=== PATIENT | female | born 1985 | race Caucasian/White ===

== ENCOUNTER 2020-07-20 11:56 | Outpatient (REF) | payer OTHER, SELFPAY ==
[2020-07-20 12:39] LABS: MANUAL DIFF FLAG NO
[2020-07-20 12:51] LABS: Basophils Percent Auto 0.4 % (0-2); Eosinophils Absolute Auto 0.1 X10*3/uL (0.0-0.4); Hematocrit 38.4 % (37-47); Hemoglobin 12.4 g/dl (12.0-16.0); Imm Gran Abs Auto 0.02 X10*3/uL (0.00-0.03); Imm Gran Pct Auto 0.3 % (0.0-0.4); Lymphocytes Absolute Auto 1.8 X10*3/uL (1.2-4.9); Lymphocytes Percent Auto 26.1 % (20-40); Mean Corpuscular HGB Conc 32.3 g/dl (31.0-35.0); Mean Corpuscular Hemoglobin 30.8 pg (27.0-33.0); Mean Corpuscular Volume 95.3 fL (80-98); Mean Platelet Volume 11.1 fL (9.4-12.3); Monocytes Absolute Auto 0.7 X10*3/uL (0.1-1.2); Monocytes Percent Auto 9.6 % (2-11); Neutrophils Absolute Auto 4.3 X10*3/uL (2.0-8.3); Neutrophils Percent Auto 62.6 % (45-73); Platelet Count 245 X10*3/uL (160-400); Red Blood Count 4.03 X10*6/uL (4.20-5.50); Red Cell Distribution Width 12.2 % (11.0-16.0); White Blood Count 6.9 X10*3/uL (4.8-10.8)
[2020-07-20 13:21] LABS: Anion Gap 14 (12-20); Blood Urea Nitrogen 11 mg/dL (9-16); Calcium 9.2 mg/dL (8.4-10.2); Carbon Dioxide 25 mmol/L (22-29); Chloride 105 mmol/L (96-108); Estimated Glomerular Filt Rate > 60; Glucose Fasting 77 mg/dL (60-99); Potassium 4.3 mmol/l (3.3-5.1); Sodium 140 mmol/L (135-145)
== END 2020-07-20 11:57 | disposition home or self-care (01) ==
LOC: HO.LAB 11:56
PROVIDERS: PCP Internal Medicine; Visit Provider Nurse Practitioner Family
DX: L40.8 Other psoriasis (principal)
CPT/HCPCS: 36415; 80048; 85025

== ENCOUNTER 2022-01-26 09:18 | Outpatient (REF) | payer OTHER, SELFPAY ==
[2022-01-26 09:54] LABS: MANUAL DIFF FLAG NO
[2022-01-26 10:19] LABS: Basophils Percent Auto 0.6 % (0-2); Eosinophils Absolute Auto 0.1 X10*3/uL (0.0-0.4); Eosinophils Percent Auto 2.3 % (0-4); Hematocrit 37.7 % (37.0-47.0); Hemoglobin 11.9 g/dl (12.0-16.0); Imm Gran Abs Auto 0.01 X10*3/uL (0.00-0.03); Imm Gran Pct Auto 0.2 % (0.0-0.4); Lymphocytes Absolute Auto 1.8 X10*3/uL (1.2-4.9); Lymphocytes Percent Auto 28.8 % (20-40); Mean Corpuscular HGB Conc 31.6 g/dl (31.0-35.0); Mean Corpuscular Hemoglobin 28.6 pg (27.0-33.0); Mean Corpuscular Volume 90.6 fL (80.0-98.0); Mean Platelet Volume 11.1 fL (9.4-12.3); Monocytes Absolute Auto 0.7 X10*3/uL (0.1-1.2); Monocytes Percent Auto 11.3 % (2-11); Neutrophils Absolute Auto 3.5 x10*3/uL (2.0-8.3); Neutrophils Percent Auto 56.8 % (45-73); Platelet Count 250 X10*3/uL (160-400); Red Blood Count 4.16 X10*6/uL (4.20-5.50); Red Cell Distribution Width 13.7 % (11.0-16.0); White Blood Count 6.2 X10*3/uL (4.8-10.8)
[2022-01-26 10:50] LABS: Estimated Average Glucose 103 mg/dL; Hemoglobin A1c % 5.2 %
[2022-01-26 10:57] LABS: Alanine Aminotransferase 14 U/L (0-31); Albumin Level 4.1 g/dL (3.5-5.0); Alkaline Phosphatase 54 U/L (39-117); Anion Gap 9 (12-20); Aspartate Amino Transferase 13 U/L (5-31); Bilirubin Direct 0.2 mg/dL (0.0-0.5); Bilirubin Total 0.4 mg/dL (0.0-1.0); Blood Urea Nitrogen 13 mg/dL (9-16); Calcium 8.9 mg/dL (8.4-10.2); Carbon Dioxide 24 mmol/L (22-29); Chloride 106 mmol/L (96-108); Cholesterol 175 mg/dL; Estimated Glomerular Filt Rate > 60; Glucose Random 78 mg/dL (60-115); HDL Cholesterol 49 mg/dL; LDL Cholesterol Calculated 112 mg/dl; Potassium 4.3 mmol/L (3.3-5.1); Sodium 135 mmol/L (135-145); Total Protein 6.8 g/dL (6.5-8.0); Triglycerides 74 mg/dL
[2022-01-26 11:05] LABS: Free T4 (Free Thyroxine) 0.84 ng/dL (0.71-1.85); Thyroid Stimulating Hormone 4.55 uIU/mL (0.32-4.0); Vitamin D 25-OH Total 27.1 ng/mL (>30)
[2022-01-26 11:30] LABS: Folate 11.6 ng/mL (> or = 4.0); Vitamin B12 548 pg/mL (200-900)
== END 2022-01-26 09:19 | disposition home or self-care (01) ==
LOC: HO.LAB 09:18
PROVIDERS: PCP Internal Medicine; Visit Provider Internal Medicine
DX: E66.9 Obesity, unspecified (principal); E78.00 Pure hypercholesterolemia, unspecified; R79.89 Other specified abnormal findings of blood chemistry; B35.1 Tinea unguium
CPT/HCPCS: 36415; 80053; 80061; 82248; 82306; 82607; 82746; 83036; 84439; 84443; 85025

== ENCOUNTER 2022-04-12 09:17 | Outpatient (REF) | payer OTHER, SELFPAY ==
[2022-04-12 16:46] LABS: CT PCR NOT DETECTED (Not Detect.); NG PCR NOT DETECTED (Not Detect.)
[2022-04-13 08:34] LABS: BV Int Neg Control Negative (Negative); BV Int Pos Control Positive (Positive)
[2022-04-16 00:27] LABS: HPV mRNA E6/E7 rflx Not Detected (Not Detected)
== END 2022-04-12 09:18 | disposition home or self-care (01) ==
LOC: HO.LAB 09:17
PROVIDERS: Visit Provider Advanced Practice Midwife
DX: Z01.419 Encounter for gynecological examination (general) (routine) without abnormal findings (principal); Z11.51 Encounter for screening for human papillomavirus (HPV); N89.8 Other specified noninflammatory disorders of vagina; Z20.2 Contact with and (suspected) exposure to infections with a predominantly sexual mode of transmission
CPT/HCPCS: 87480; 87491; 87510; 87591; 87624; 87660; 88142

== ENCOUNTER 2022-05-30 12:01 | Outpatient (REF) | payer OTHER, SELFPAY ==
[2022-05-31 12:16] LABS: BV Int Neg Control Negative (Negative); BV Int Pos Control Positive (Positive)
== END 2022-05-30 12:02 | disposition home or self-care (01) ==
LOC: HO.LNP 12:01
PROVIDERS: Visit Provider Advanced Practice Midwife
DX: Z11.3 Encounter for screening for infections with a predominantly sexual mode of transmission (principal); Z11.4 Encounter for screening for human immunodeficiency virus [HIV]; D64.9 Anemia, unspecified; R79.89 Other specified abnormal findings of blood chemistry
CPT/HCPCS: 36415; 82728; 83540; 84439; 84443; 85025; 85045; 86704; 86780; 86803; 87389; 87480; 87510; 87660; 99212

== ENCOUNTER 2022-05-30 12:06 | Outpatient (REF) | payer OTHER, SELFPAY ==
[2022-05-30 12:26] LABS: MANUAL DIFF FLAG NO
[2022-05-30 12:57] LABS: Basophils Percent Auto 0.3 % (0-2); Eosinophils Absolute Auto 0.1 X10*3/uL (0.0-0.4); Hematocrit 38.2 % (37.0-47.0); Hemoglobin 12.9 g/dl (12.0-16.0); Imm Gran Abs Auto 0.01 X10*3/uL (0.00-0.03); Imm Gran Pct Auto 0.2 % (0.0-0.4); Immature Retic Fraction 8.2 % (3.0-15.9); Lymphocytes Absolute Auto 1.5 X10*3/uL (1.2-4.9); Mean Corpuscular HGB Conc 33.8 g/dl (31.0-35.0); Mean Corpuscular Hemoglobin 30.3 pg (27.0-33.0); Mean Corpuscular Volume 89.7 fL (80.0-98.0); Mean Platelet Volume 11.3 fL (9.4-12.3); Monocytes Absolute Auto 0.5 X10*3/uL (0.1-1.2); Neutrophils Absolute Auto 4.2 x10*3/uL (2.0-8.3); Neutrophils Percent Auto 66.5 % (45-73); Platelet Count 260 X10*3/uL (160-400); Red Blood Count 4.26 X10*6/uL (4.20-5.50); Retic HGB Equivalent 35.1 pg (30.0-35.0); Reticulocyte Percent 1.2 % (0.5-1.8); Reticulocytes Absolute 0.051 X10*6/uL (0.026-0.095); White Blood Count 6.3 X10*3/uL (4.8-10.8)
[2022-05-30 13:30] LABS: Iron 71 mcg/dL (30-160); Percent Iron Saturation 20 % (15-50); Total Iron Binding Capacity 361 mcg/dL (228-428); Unsaturated Iron Binding 290 ug/dL
[2022-05-30 13:52] LABS: Ferritin 14 ng/mL (10-122); Free T4 (Free Thyroxine) 0.91 ng/dL (0.71-1.85); Thyroid Stimulating Hormone 5.51 uIU/mL (0.32-4.0)
[2022-05-30 14:43] LABS: Syphilis Screen Nonreactive (Nonreactive)
[2022-05-31 08:50] LABS: HBc Num1 0.12 S/CO (0.00-0.79); HIV AB/AG Nonreactive (Nonreactive); HIV Num 1 0.09 S/CO (0.00-0.99); Hepatitis B Core Antibody Nonreactive (Nonreactive); ~HepC Num1 0.16 S/CO (0.00-0.79); ~Hepatitis C Antibody Nonreactive (Nonreactive)
== END 2022-05-30 12:07 | disposition home or self-care (01) ==
LOC: HO.LAB 12:06
PROVIDERS: Absent Provider Internal Medicine; PCP Internal Medicine; Visit Provider Advanced Practice Midwife
DX: Z13.89 Encounter for screening for other disorder (principal)
CPT/HCPCS: 36415; 82728; 83540; 84439; 84443; 85025; 85045; 86704; 86780; 86803; 87389

== ENCOUNTER 2022-06-23 11:57 | Outpatient (REF) | payer OTHER, SELFPAY ==
--- NOTE | 2022-06-23 10:00 | EMG_ITS ---
Bilateral median and ulnar motor and sensory studies were performed. Bilateral radial and sensory studies were performed. Paraspinal muscles were tested with a needle. IMPRESSION: 1. [id number] right median neuropathy across carpal tunnel. 2. Mild left median neuropathy across carpal tunnel. MD ÓSCAR Farfan/HIRAM / [id number]
== END 2022-06-23 11:58 | disposition home or self-care (01) ==
LOC: HO.NEURO 11:57
PROVIDERS: PCP Internal Medicine; Visit Provider Internal Medicine
DX: R20.0 Anesthesia of skin (principal)
CPT/HCPCS: 95886; 95911

== ENCOUNTER 2022-08-31 21:19 | Emergency (ER) | payer OTHER, SELFPAY ==
[2022-08-31 21:31] VITALS: BP 131/80; PULSE 84; RESP 18; TEMP 36.7; O2SAT 99; BMI 31.3
[2022-08-31 22:04] LABS: Appearance Urine Clear; Color Urine Yellow; Glucose Urine UA Negative (Negative); Leukocyte Esterase Urine Negative (Negative); Nitrite Urine Negative (Negative); PH 5.5 (5.0-9.0); Specific Gravity - Urine 1.025 (1.005-1.025); UMIC TRIGGER UACC YES; Urine Blood Small (1+) (Negative); Urine Ketones Trace mg/dL (Negative); Urine Protein Trace mg/dL (Neg-Trace)
[2022-08-31 22:10] LABS: Urine Pregnancy NEGATIVE (NEGATIVE)
[2022-08-31 22:11] LABS: UPreg QC Valid YES
[2022-08-31 22:12] LABS: Bacteria Urine None Seen (None Seen); Hyaline Casts Urine 0-2 /LPF (0-2); WBC Urine 0-5 /HPF (0-5)
--- NOTE | 2022-08-31 22:47 | ED_ITS ---
HPI - General Adult General Chief complaint: General Medical Stated complaint: UTI? Time Seen by Provider: 08/31/22 22:21 Source: patient Mode of arrival: ambulatory Limitations: no limitations History of Present Illness HPI narrative: Patient otherwise healthy with no significant medical history everybody at home sick with upper respiratory symptoms patient had low-grade fever and chills and slight cough yesterday today she noticed painful urination slight amount of blood no vaginal discharge no frequency no nausea or vomiting no history of kidney stone Related Data Previous Rx's Medication Instructions Recorded cefuroxime axetil 250 mg tablet 250 mg PO BID 7 days #14 tabs 08/31/22 Allergies Allergy/AdvReac Type Severity Reaction Status Date / Time No Known Allergies Allergy Verified 07/05/22 11:23 [No Known Allergies*] Review of Systems Review of Systems: Yes all other systems are reviewed and are negative [facility] Past Medical History Medical History Bilateral finger numbness BMI 35.0-35.9,adult Surgical History Status post tonsillectomy Family History Family History Maternal Grandmother Breast cancer Maternal Aunt Breast cancer Mother Bipolar 1 disorder Social History Social History Housing: Apartment Alcohol intake: never Patient Tobacco Use Status: Former Tobacco user Tobacco use type: Cigarette Years Smoked: quit 2019 Smoked in Last 30 Days: No e-Cigarette/Vaping Use: Never Used Second Hand Smoke Exposure: No Use of substances other than those prescribed or required for medical reasons: No Advance Directives: No Advance Directives Information Provided: No Current occupational status: employed Cognitive needs: No Hearing needs: No Vision needs: Yes Physical Exam ED Vital Signs: Vital Signs - 24 hr 08/31/22 21:31 08/31/22 23:32 Temperature 98.1 F 97.5 F Pulse Rate 84 85 Respiratory Rate 18 16 Blood Pressure 131/80 106/81 Pulse Oximetry 99 98 Oxygen Delivery Method Room Air Room Air BMI result Body Mass Index 31.3 Appearance: Alert. Oriented X3. No acute distress. ENT: Pharynx normal. Oral Mucosa moist Neck: Normal inspection. Neck supple. CVS: Normal heart rate and rhythm. Pulses normal. Respiratory: No respiratory distress. Equal air entry bilateral, no wheezing/rales/rhonchi Abdomen: Soft and nontender. Bowel sounds are present, no mass palpable, no CVA tenderness Skin: Skin warm and dry. Normal skin color. Normal skin turgor. Extremities: No lower extremity edema. No calf tenderness Neuro: Oriented X 3. No motor deficit. Medications Administered Discontinued Medications Generic Name Dose Route Start Last Admin Trade Name Sofia PRN Reason Stop Dose Admin Cefuroxime Axetil 250 mg 08/31/22 22:44 08/31/22 23:36 Cefuroxime Axetil 250 Mg Tablet PO 08/31/22 22:45 250 mg ONCE ONE Administration Medical Decision Making Lab Data [facility] Lab Attestation statement: I reviewed the patient's lab results. Labs: Lab Results 08/31/22 08/31/22 Range/Units 21:56 21:56 Urine Color Yellow Urine Appearance Clear Urine pH 5.5 (5.0-9.0) Ur Specific D[place] 1.025 (1.005-1.025) Urine Protein Trace (Neg-Trace) mg/dL Urine Glucose (UA) Negative (Negative) mg/dL Urine Ketones Trace (Negative) mg/dL Urine Blood Small (1+) H (Negative) Urine Nitrite Negative (Negative) Ur Leukocyte Esterase Negative (Negative) Urine RBC 3-5 H (0-2) /HPF Urine WBC 0-5 (0-5) /HPF Ur Squamous Epith Cells 3-5 (0-2) /HPF Urine Bacteria None Seen (None Seen) Hyaline Casts 0-2 (0-2) /LPF Urine Test NEGATIVE (NEGATIVE) Discharge Plan Discharge Clinical Impression: Hemorrhagic cystitis Patient Disposition: Home, Self-Care Instructions: Urinary Tract Infection in Women (ED) Additional Instructions: Drink plenty of fluids Antibiotic as advised Report to the ER if worsening of the pain/fever/vomiting Prescriptions: New cefuroxime axetil 250 mg tablet 250 mg PO BID 7 Days Qty: 14 0RF Interventions: ED Discharge Assessment Last Done: 09/01/22 00:01 Discharge Date/Time: 09/01/22 00:02
[2022-08-31 23:32] VITALS: BP 106/81; PULSE 85; RESP 16; TEMP 36.4; O2SAT 98
== END 2022-09-01 00:02 | disposition home or self-care (01) ==
PROVIDERS: Emergency Provider Internal Medicine; PCP Internal Medicine
DX: N30.91 Cystitis, unspecified with hematuria (principal); Z87.891 Personal history of nicotine dependence
CPT/HCPCS: 81001; 81003; 81025; 99283; 99284

== ENCOUNTER 2022-10-04 22:05 | Emergency (ER) | payer OTHER, SELFPAY ==
[2022-10-04 22:46] VITALS: BP 103/71; PULSE 94; RESP 18; TEMP 36.6; O2SAT 96; BMI 31.3
[2022-10-04 23:15] LABS: Strep A Nucleic Acid Negative (Negative)
--- NOTE | 2022-10-05 02:05 | ED_ITS ---
HPI - URI/Sore Throat General Chief Complaint: Upper Respiratory Symptoms Stated Complaint: Sore throat Time Seen by Provider: 10/05/22 01:33 Source: patient Mode of arrival: ambulatory Limitations: no limitations History of Present Illness HPI Narrative: 37-year-old female who presents emergency department for evaluation of sore throat. Patient states she has had a sore throat for approximately 2-3 days. She states that the pain is gotten worse. She describes the pain is a constant, sharp pain which is worse with swallowing. She had a subjective fever at home, she denied chills, she had rhinorrhea, she denied cough, chest pain, shortness of breath, nausea, vomiting or diarrhea. The patient states she has had a tonsillectomy and prior to her tonsillectomy she did get frequent sore throats. She denied any your pain. Related Data Previous Rx's Medication Instructions Recorded cefuroxime axetil 250 mg tablet 250 mg PO BID 7 days #14 tabs 08/31/22 Allergies Allergy/AdvReac Type Severity Reaction Status Date / Time No Known Allergies Allergy Verified 07/05/22 11:23 [No Known Allergies*] Review of Systems Review of Systems: Yes all other systems are reviewed and are negative [facility] Past Medical History [facility] Narrative: Past medical history: None. Past surgical history: None. Social history: She denies tobacco and alcohol use. The patient's daughters here in the emergency department with a sore throat as well. Medical History Bilateral finger numbness BMI 35.0-35.9,adult Surgical History Status post tonsillectomy Family History Family History Maternal Grandmother Breast cancer Maternal Aunt Breast cancer Mother Bipolar 1 disorder Social History Social History Housing: Apartment Alcohol intake: never Patient Tobacco Use Status: Former Tobacco user Tobacco use type: Cigarette Years Smoked: quit 2019 e-Cigarette/Vaping Use: Never Used Second Hand Smoke Exposure: No Advance Directives: No Advance Directives Information Provided: Yes Current occupational status: employed Cognitive needs: No Hearing needs: No Vision needs: Yes Physical Exam Vital Signs: Vital Signs: Last Vital Signs Temp 98 F 10/04/22 22:46 Pulse 94 10/04/22 22:46 Resp 18 10/04/22 22:46 BP 103/71 10/04/22 22:46 Pulse Ox 96 10/04/22 22:46 O2 Del Method 10/04/22 22:46 BMI result Body Mass Index 31.3 Vital signs were normal General: Very pleasant and cooperative female patient, does not appear to be in distress, answers all questions appropriately. HEENT: Patient's head is normal cephalic, atraumatic, pupils were equal round reactive light, sclera contact however normal, no rhinorrhea, mouth revealed moist membranes, posterior pharynx revealed erythema with no exudates, tympanic membranes were normal bilaterally Neck: No tender adenopathy Lungs: Clear to auscultation, breath sounds symmetric bilaterally Heart: Regular rate rhythm, normal S1-S2 no murmurs or gallops Abdomen: Soft nontender normoactive bowel sounds Neuro: Nonfocal Medical Decision Making Medical Decision Making MDM Narrative: 37-year-old female who presents emergency department for evaluation 2-3 days of sore throat, rhinorrhea, subjective fevers, patient has a history of a tonsillectomy. Vital signs were normal. Exam did reveal posterior erythema otherwise was unremarkable , patient's rapid strep was negative. Findings are consistent with a viral pharyngitis I did discuss this with the patient. She was advised to take Tylenol ibuprofen. She was given printed and verbal instructions discharged home Differential Diagnosis Differential diagnosis includes was not limited to viral pharyngitis, bacterial pharyngitis, mononucleosis Lab Data [facility] Lab Attestation statement: I reviewed the patient's lab results. Labs: Lab Results 10/04/22 Range/Units 22:49 S. pyogenes GrpA PRAVEENA Negative (Negative) Discharge Plan Discharge Clinical Impression: Acute viral pharyngitis Patient Disposition: Home, Self-Care Instructions: Pharyngitis (ED) Additional Instructions: Your rapid strep test was negative. You do have redness the back of your throat and this is most likely caused by a viral infection. Take ibuprofen 200 mg pills, 2 pills every 6 hours as needed for pain. Take Tylenol (acetaminophen) 500 mg pills, 2 pills every 4 to 6 hours as needed for pain. Follow-up with your doctor in 2 days. Please return to the emergency department if your symptoms get worse or if you develop any symptoms that are concerning to you. Please see work note Prescriptions: No Action cefuroxime axetil 250 mg tablet 250 mg PO BID 7 Days Qty: 14 0RF Stand Alone Forms: Work/School Release
== END 2022-10-05 02:38 | disposition home or self-care (01) ==
PROVIDERS: Emergency Provider Emergency Medicine Emergency Medical Services; PCP Internal Medicine
DX: J02.8 Acute pharyngitis due to other specified organisms (principal); Z87.891 Personal history of nicotine dependence; Z79.899 Other long term (current) drug therapy
CPT/HCPCS: 36415; 87651; 99282; 99283

== ENCOUNTER 2022-10-05 10:04 | Outpatient (REF) | payer OTHER, SELFPAY ==
[2022-10-05 11:58] LABS: Free T4 (Free Thyroxine) 0.93 ng/dL (0.71-1.85); Thyroid Stimulating Hormone 6.21 uIU/mL (0.32-4.0)
== END 2022-10-05 10:05 | disposition home or self-care (01) ==
LOC: HO.LAB 10:04
PROVIDERS: PCP Internal Medicine; Visit Provider Internal Medicine
DX: R79.89 Other specified abnormal findings of blood chemistry (principal)
CPT/HCPCS: 36415; 84439; 84443

== ENCOUNTER 2023-07-14 10:34 | Emergency (ER) | payer OTHER, SELFPAY ==
--- NOTE | ~2023-07-14 | XR_ITS ---
EXAMINATION: XR WRIST, LEFT XR HAND, LEFT CLINICAL INFORMATION: Left thumb pain and swelling COMPARISON: None available. TECHNIQUE: PA, lateral, and oblique views of the left wrist and PA, lateral, and oblique views of the left hand FINDINGS: LEFT WRIST: The bones and soft tissues are normal. No fracture. Alignment is anatomic. Joint spaces are maintained. No erosions or soft tissue calcifications. LEFT HAND: The bones and soft tissues are normal. No fracture. Alignment is anatomic. Joint spaces are maintained. No erosions or soft tissue calcifications. XR/XR hand wrist LT IMPRESSION: Unremarkable left hand and wrist exam
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
[2023-07-14 11:22] VITALS: BP 114/78; PULSE 82; RESP 18; TEMP 36.6; O2SAT 98; BMI 32.9
== END 2023-07-14 13:56 | disposition home or self-care (01) ==
PROVIDERS: Emergency Provider Emergency Medicine Emergency Medical Services; PCP Internal Medicine
DX: S19.9XXA Unspecified injury of neck, initial encounter (principal); S69.92XA Unspecified injury of left wrist, hand and finger(s), initial encounter; M54.2 Cervicalgia; M25.512 Pain in left shoulder; M79.10 Myalgia, unspecified site; V43.52XA Car driver injured in collision with other type car in traffic accident, initial encounter; Y93.9 Activity, unspecified; Y92.410 Unspecified street and highway as the place of occurrence of the external cause; Y99.9 Unspecified external cause status; Z79.899 Other long term (current) drug therapy; Z87.891 Personal history of nicotine dependence
CPT/HCPCS: 73110; 73130; 99283

== ENCOUNTER 2023-07-22 22:16 | Emergency (ER) | payer OTHER, SELFPAY ==
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
[2023-07-22 23:11] VITALS: BP 119/77; PULSE 84; RESP 16; TEMP 36.6; O2SAT 97; BMI 33.7
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
[2023-07-23 00:36] LABS: OBS Int Ctl Valid YES; OBS1 NEGATIVE (NEGATIVE)
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
[2023-07-23 01:02] VITALS: BP 117/68; PULSE 73; RESP 16; TEMP 36.9; O2SAT 97
[2023-07-23] MEDS: traMADoL HCL 50 MG TABLET PO (01:27)
== END 2023-07-23 01:54 | disposition home or self-care (01) ==
PROVIDERS: Emergency Provider Internal Medicine; PCP Internal Medicine
DX: M54.50 Low back pain, unspecified (principal); M79.10 Myalgia, unspecified site; R10.9 Unspecified abdominal pain
CPT/HCPCS: 72100; 82272; 99284

== ENCOUNTER 2023-07-27 14:25 | Outpatient (AMB) | payer OTHER, SELFPAY ==
[2023-07-27 14:29] VITALS: BP 124/76; BMI 36.2
--- NOTE | 2023-07-27 14:29 | MHC.OFFVIS ---
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 Doing well with no concerns. She tries to eat healthy and stays active with exercise. Regular monthly menses. Currently is sexually active. She denies vaginal itching and irritation. STI screening offered; she accepts. Denies family history of breast, ovarian or colon cancer. Last pap smear 2021, ascus. [facility] Medical History BMI 35.0-35.9,adult Bilateral finger numbness Annual physical exam Surgical History Status post tonsillectomy Family History Maternal Grandmother Breast cancer Maternal Aunt Breast cancer Mother Bipolar 1 disorder Social History Housing: Apartment Alcohol intake: never Patient Tobacco Use Status: Former Tobacco user Tobacco use type: Cigarette Years Smoked: quit 2018 e-Cigarette/Vaping Use: Never Used Second Hand Smoke Exposure: No Current occupational status: employed Cognitive needs: No Hearing needs: No Vision needs: Yes Female Reproductive History Menstrual Age of Menarche: 13 Duration of menses: 6-7 days Date of last menstrual period: 07/10/23 control method: none Total pregnancies: 5 Full term: 5 Number of Living Children: 5 Date of last pap smear: 04/14/22 History of abnormal pap smear: Yes History of STI: No Review of Systems Const All systems reviewed & are unremarkable except as noted in HPI and below Reports as per HPI Eyes Reports no additional complaints ENT Reports no additional complaints Card Reports no additional complaints Resp Reports no additional complaints GI Reports as per HPI and Reports no additional complaints Reports as per HPI Musc Reports no additional complaints Skin/Breast Reports as per HPI Neuro Reports no additional complaints Psych Reports no additional complaints Endo Reports no additional complaints Pankaj/Lymph Reports no additional complaints Aller/Immun Reports no additional complaints Physical Exam Vital Signs: Last Vital Signs BP 124/76 07/27/23 14:29 BMI result Body Mass Index 36.2 Const General: cooperative, healthy appearing, no acute distress, well developed and alert Orientation/consciousness: patient oriented x3 HEENT Head: Yes normal to inspection Eyes General: appearance normal, both eyes and all related structures Neck Neck: Yes normal visual inspection Thyroid: Thyroid normal Chest Chest palpation & inspection: normal inspection of the chest and other (no puckering, dimpling, peau de orange, retraction, discharge, masses) Breast/axilla inspection: normal inspection of the breasts Breast/axilla palpation: normal palpation of the breasts Resp Effort & Inspection: normal respiratory effort GI Inspection: Yes normal to inspection Palpation (GI): Soft to palpation Rectal Exam - Female: deferred General: Yes bladder normal to palpation External Female Exam: normal external appearance and normal appearance of the urethra Speculum Exam - Vagina: normal appearance of the vagina, normal palpation and normal vaginal discharge Speculum Exam - Cervix: normal appearance of the cervix and normal palpation Bimanual exam- vagina & uterus: normal bimanual exam, normal palpation, uterine size normal, bladder normal to palpation, normal palpation and non-tender Bimanual Exam- Adnexa, other: no masses Skin General skin exam: no rashes or lesions noted Rashes: no rashes Neuro General: patient oriented x3 Cognition (Neuro): normal cognition Extrem General: Yes normal to inspection Psych Attitude: cooperative Thought process: Normal thought process present Assessment & Plan Assessment & Plan (1) Encounter for annual routine gynecological examination: Code(s): Z01.419 - Encounter for gynecological examination (general) (routine) without abnormal findings (2) History of abnormal cervical Pap smear: Code(s): Z87.42 - Personal history of other diseases of the female genital tract (3) Heavy menses: Code(s): N92.0 - Excessive and frequent menstruation with regular cycle Plan Discussed: Current recommendations for pap smears per ASCCP guidelines. Breast awareness and periodic breast exams. Maintain a healthy lifestyle including a well balanced diet and routine exercise. Use condoms for STI and prevention. All of her questions and concerns were addressed to the best of my ability. 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 Orders: Orders US pelvic and transvaginal Today N92.0 - Excessive and frequent menstruation with regular cycle Thyroid Stimulating Hormone Today N92.0 - Excessive and frequent menstruation with regular cycle, N92.1 - Excessive and frequent menstruation with irregular cycle CT NG by PCR Today Z01.419 - Encounter for gynecological examination (general) (routine) without abnormal findings Pap Smear Today Z01.419 - Encounter for gynecological examination (general) (routine) without abnormal findings Complete Blood Count no Diff Today N92.0 - Excessive and frequent menstruation with regular cycle HIV Ab/Ag Today Z20.2 - Contact with and (suspected) exposure to infections with a predominantly sexual mode of transmission Hepatitis C Antibody Today Z20.2 - Contact with and (suspected) exposure to infections with a predominantly sexual mode of transmission Hepatitis B Core Antibody Today Z20.2 - Contact with and (suspected) exposure to infections with a predominantly sexual mode of transmission Syphilis Screen Today Z20.2 - Contact with and (suspected) exposure to infections with a predominantly sexual mode of transmission Bacterial Vaginosis Panel Today [id number] - Encounter for gynecological examination (general) (routine) without abnormal findings Coding Level of Care Code Est Pt Prev Care 18-39y(85905) Diagnoses Encounter for annual routine gynecological examination Z01.419 History of abnormal cervical Pap smear Z87.42 Heavy menses N92.0
== END 2023-07-27 16:09 | disposition home or self-care (01) ==
PROVIDERS: PCP Internal Medicine; Visit Provider Advanced Practice Midwife
DX: Z01.419 Encounter for gynecological examination (general) (routine) without abnormal findings (principal); Z87.42 Personal history of other diseases of the female genital tract; N92.0 Excessive and frequent menstruation with regular cycle
CPT/HCPCS: 99395

== ENCOUNTER 2023-07-27 14:25 | Outpatient (REF) | payer OTHER, SELFPAY ==
[2023-08-04 03:48] LABS: HPV mRNA E6/E7 rflx Not Detected (Not Detected)
== END 2023-07-27 14:26 | disposition home or self-care (01) ==
LOC: HO.LNP 14:25
PROVIDERS: PCP Internal Medicine; Visit Provider Advanced Practice Midwife
DX: Z01.419 Encounter for gynecological examination (general) (routine) without abnormal findings (principal); Z11.51 Encounter for screening for human papillomavirus (HPV)
CPT/HCPCS: 87624; 88142; 99395

== ENCOUNTER 2023-07-27 15:20 | Outpatient (REF) | payer OTHER, SELFPAY ==
[2023-07-27 18:12] LABS: Hematocrit 37.6 % (37.0-47.0); Hemoglobin 12.7 g/dl (12.0-16.0); Mean Corpuscular HGB Conc 33.8 g/dl (31.0-35.0); Mean Corpuscular Hemoglobin 30.4 pg (27.0-33.0); Mean Platelet Volume 11.6 fL (9.4-12.3); Platelet Count 257 X10*3/uL (160-400); Red Blood Count 4.18 X10*6/uL (4.20-5.50); Red Cell Distribution Width 13.2 % (11.0-16.0)
[2023-07-28 03:50] LABS: CT PCR NOT DETECTED (Not Detect.); NG PCR NOT DETECTED (Not Detect.)
[2023-07-28 07:11] LABS: Syphilis Screen Nonreactive (Nonreactive)
[2023-07-28 07:23] LABS: HBc Num1 0.11 S/CO (0.00-0.79); HIV AB/AG Nonreactive (Nonreactive); HIV Num 1 0.05 S/CO (0.00-0.99); Hepatitis B Core Antibody Nonreactive (Nonreactive); ~HepC Num1 0.19 S/CO (0.00-0.79); ~Hepatitis C Antibody Nonreactive (Nonreactive)
[2023-07-28 13:45] LABS: BV Int Neg Control Negative (Negative); BV Int Pos Control Positive (Positive)
== END 2023-07-27 15:21 | disposition home or self-care (01) ==
LOC: HO.LAB 15:20
PROVIDERS: PCP Internal Medicine; Visit Provider Advanced Practice Midwife
DX: Z01.419 Encounter for gynecological examination (general) (routine) without abnormal findings (principal); Z11.4 Encounter for screening for human immunodeficiency virus [HIV]; Z20.2 Contact with and (suspected) exposure to infections with a predominantly sexual mode of transmission; N92.1 Excessive and frequent menstruation with irregular cycle; N92.0 Excessive and frequent menstruation with regular cycle
CPT/HCPCS: 0353U; 84443; 85027; 86704; 86780; 86803; 87389; 87480; 87510; 87660

== ENCOUNTER 2023-07-28 10:59 | Outpatient (AMB) | payer OTHER, SELFPAY ==
[2023-07-28 11:01] VITALS: BP 134/72; PULSE 62; O2SAT 100; BMI 36.2
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
== END 2023-07-28 11:43 | disposition home or self-care (01) ==
PROVIDERS: PCP Internal Medicine; Visit Provider Nurse Practitioner Family
DX: M54.9 Dorsalgia, unspecified (principal); M54.2 Cervicalgia
CPT/HCPCS: 99213

== ENCOUNTER 2023-08-04 12:01 | Outpatient (REF) | payer OTHER, SELFPAY ==
--- NOTE | ~2023-08-04 | US_ITS ---
EXAMINATION: US PELVIS CLINICAL INFORMATION: Excessive and frequent menstruation with regular cycles. LMP 07/08/2023 COMPARISON: None available. TECHNIQUE: Ultrasound of the pelvis is performed using both transabdominal and transvaginal transducers along with Doppler. Transvaginal imaging is performed due to inadequate visualization transabdominally. FINDINGS: Uterus: The uterus is anteverted and measures 10.6 x 4.7 x 5.6 cm. Uterine echotexture is heterogeneous. The double wall endometrial thickness is 21 mm. Echogenic focus within the endometrium measuring 2.6 x 1.1 x 2.0 cm with possible feeding vessel. Cervical nabothian cysts. Adnexa: Both ovaries are visualized. There is normal color flow to the adnexa. Right ovary measures 3.7 x 2.2 x 2.5 cm. Left ovary measures 3.8 x 2.4 x 2.3 cm. US/US pelvic and transvaginal IMPRESSION: Possible endometrial polyp measuring 2.6 x 1.1 x 2.0 cm.
== END 2023-08-04 12:02 | disposition home or self-care (01) ==
LOC: HO.US 12:01
PROVIDERS: PCP Internal Medicine; Visit Provider Advanced Practice Midwife
DX: N92.0 Excessive and frequent menstruation with regular cycle (principal)
CPT/HCPCS: 76830; 76856

== ENCOUNTER 2023-08-17 15:50 | Outpatient (AMB) | payer OTHER, SELFPAY ==
--- NOTE | 2023-08-17 15:54 | MHC.OFFVIS ---
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 She reports heavy menstrual periods lasting up to 7 days. Also wanted to discuss vaginal pH, bacterial vaginosis occurrences. [facility] Medical History BMI 35.0-35.9,adult Bilateral finger numbness Annual physical exam Surgical History Status post tonsillectomy Family History Maternal Grandmother Breast cancer Maternal Aunt Breast cancer Mother Bipolar 1 disorder Social History Housing: Apartment Alcohol intake: never Patient Tobacco Use Status: Former Tobacco user Tobacco use type: Cigarette Years Smoked: quit 2019 e-Cigarette/Vaping Use: Never Used Second Hand Smoke Exposure: No Current occupational status: employed Cognitive needs: No Hearing needs: No Vision needs: Yes Female Reproductive History Menstrual Age of Menarche: 13 Date of last menstrual period: 08/08/23 Review of Systems Const All systems reviewed & are unremarkable except as noted in HPI and below Endo Reports no additional complaints Physical Exam Vital Signs: Last Vital Signs BP 116/72 08/17/23 15:55 BMI result Body Mass Index 36.2 Const General: cooperative, healthy appearing and no acute distress Psych Appearance: well kempt Attitude: cooperative Thought process: Normal thought process present Results Reviewed Results Reviewed: [address] [address] Ultrasound Report Signed Patient: Honey Mazariegos MR#: [id number] : 1985 Acct:[id number] Age/Sex: 38 / F ADM Date: 08/04/23 Loc: HO.US Attending Dr: Maki Tijerina CNM Ordering Physician: Maki Tijerina CNM Date of Service: 08/04/23 Procedure(s): US pelvic and transvaginal Accession Number(s): [id number] cc: Maki Tijerina CNM; Jackson Saavedra MD~ EXAMINATION: US PELVIS CLINICAL INFORMATION: Excessive and frequent menstruation with regular cycles. LMP 07/08/2023 COMPARISON: None available. TECHNIQUE: Ultrasound of the pelvis is performed using both transabdominal and transvaginal transducers along with Doppler. Transvaginal imaging is performed due to inadequate visualization transabdominally. FINDINGS: Uterus: The uterus is anteverted and measures 10.6 x 4.7 x 5.6 cm. Uterine echotexture is heterogeneous. The double wall endometrial thickness is 21 mm. Echogenic focus within the endometrium measuring 2.6 x 1.1 x 2.0 cm with possible feeding vessel. Cervical nabothian cysts. Adnexa: Both ovaries are visualized. There is normal color flow to the adnexa. Right ovary measures 3.7 x 2.2 x 2.5 cm. Left ovary measures 3.8 x 2.4 x 2.3 cm. US/US pelvic and transvaginal IMPRESSION: Possible endometrial polyp measuring 2.6 x 1.1 x 2.0 cm. Dictated By: Lencho Carroll MD Signed By: <Electronically signed by Lencho Carroll MD in OV> 08/10/23 1619 DD/ 1241 TD/TT: Squeegee Operator: Assessment & Plan Assessment & Plan (1) Endometrial polyp: Code(s): N84.0 - Polyp of corpus uteri (2) Encounter to discuss test results: Code(s): Z71.2 - Person consulting for explanation of examination or test findings Plan Discussed findings of ultrasound with possible endometrial polyp, recommendations are to have a hysteroscopy. Anticipatory guidance for the procedure was reviewed with her today she agrees to proceed with that consult. Visual guide from the web site demonstrating what Endometrial polyps is was reviewed. Discussed normal vaginal pH, role of the eco system vaginally, when to treat for BV symptoms, and the use of boric acid. She does not report any symptoms today and declines any physical exam. All of her questions and concerns were addressed to the best of my ability and shared decision making. She is agreeable to the plan of care. Schedule hysteroscopy appointment with Dr. Palma. Coding Level of Care Code Est Pt Level 3 (00161) Diagnoses Endometrial polyp N84.0 Encounter to discuss test results Z71.2
[2023-08-17 15:55] VITALS: BP 116/72; BMI 36.2
== END 2023-08-17 16:19 | disposition home or self-care (01) ==
LOC: HO.HWS 15:50
PROVIDERS: PCP Internal Medicine; Visit Provider Advanced Practice Midwife
DX: N84.0 Polyp of corpus uteri (principal); Z71.2 Person consulting for explanation of examination or test findings
CPT/HCPCS: 99213

== ENCOUNTER → 2023-08-17 15:50 | Outpatient (BNVA) | payer OTHER, SELFPAY | PROVIDERS: PCP Internal Medicine; Visit Provider Advanced Practice Midwife | DX: N84.0 Polyp of corpus uteri (principal); Z71.2 Person consulting for explanation of examination or test findings | CPT/HCPCS: 99212 ==

== ENCOUNTER 2023-09-08 16:06 | Outpatient (REF) | payer OTHER, SELFPAY ==
[2023-09-08 18:40] LABS: Free T4 (Free Thyroxine) 0.93 ng/dL (0.71-1.85); Thyroid Stimulating Hormone 5.24 uIU/mL (0.32-4.0)
== END 2023-09-08 16:07 | disposition home or self-care (01) ==
LOC: HO.LAB 16:06
PROVIDERS: PCP Internal Medicine; Visit Provider Internal Medicine
DX: E03.9 Hypothyroidism, unspecified (principal)
CPT/HCPCS: 36415; 84439; 84443

== ENCOUNTER 2023-09-18 13:58 | Outpatient (AMB) | payer OTHER, SELFPAY ==
[2023-09-18 14:00] VITALS: BP 112/60; BMI 36.2
--- NOTE | 2023-09-18 14:00 | MHC.OFFVIS ---
Intake Vital Signs 09/18/23 14:00 Height 5 ft 7 in Weight 231 lb BMI 36.2 BP 112/60 Intake Visit Reasons: hysteroscopy consult/per BMaloney Environmental Remediation Specialist: Environmental Remediation Specialist Present Allergies No Known Allergies [No Known Allergies*] Allergy (Verified 09/18/23 14:00) Is last menstrual period known: Yes Last menstrual period: 06/11/20 Post menopausal: No Patient : No Do you need a note to return to daycare/school/sports/work: Yes (for surgery on monday) HPI HPI Comments History of Present Illness Details The patient is presenting referred from Maki Tijerina CNM regarding normal pelvic ultrasound. The patient had abnormal uterine bleeding, the following workup was done: H&H 12.7/37.6 TSH elevated, free T4 within normal GC/CT negative Co testing negative Pelvic ultrasound showed the following: Uterus: The uterus is anteverted and measures 10.6 x 4.7 x 5.6 cm. Uterine echotexture is heterogeneous. The double wall endometrial thickness is 21 mm. Echogenic focus within the endometrium measuring 2.6 x 1.1 x 2.0 cm with possible feeding vessel. Cervical nabothian cysts. Adnexa: Both ovaries are visualized. There is normal color flow to the adnexa. Right ovary measures 3.7 x 2.2 x 2.5 cm. Left ovary measures 3.8 x 2.4 x 2.3 cm. [facility] Medical History BMI 35.0-35.9,adult Bilateral finger numbness Annual physical exam Surgical History Status post tonsillectomy Family History Maternal Grandmother Breast cancer Maternal Aunt Breast cancer Mother Bipolar 1 disorder Social History Housing: Apartment Alcohol intake: never Patient Tobacco Use Status: Former Tobacco user Tobacco use type: Cigarette Years Smoked: quit 2018 e-Cigarette/Vaping Use: Never Used Second Hand Smoke Exposure: No Current occupational status: employed Cognitive needs: No Hearing needs: No Vision needs: Yes Female Reproductive History Menstrual Age of Menarche: 13 Date of last menstrual period: 06/11/20 Total pregnancies: 2 Full term: 2 Review of Systems Card Reports as per HPI and Reports no additional complaints Resp Reports as per HPI and Reports no additional complaints GI Reports as per HPI and Reports no additional complaints Reports as per HPI Physical Exam Vital Signs: Last Vital Signs BP 112/60 09/18/23 14:00 BMI result Body Mass Index 36.2 Const General: cooperative, healthy appearing and comfortable Resp Effort & Inspection: normal respiratory effort Auscultation: clear to auscultation bilaterally Percussion: percussion normal Cardio Palpation: normal PMI Rate: regular rate Rhythm: regular rhythm Heart sounds: no murmurs and no rubs Peripheral pulses: Peripheral pulses 2+ throughout GI Inspection: Yes normal to inspection Palpation (GI): Soft to palpation, nontender, no guarding, not rigid and No hepatosplenomegaly present Percussion: Yes normal to percussion Auscultation: normal bowel sounds Rectal Exam - Female: deferred Assessment & Plan Assessment & Plan (1) Abnormal uterine bleeding (AUB): Comment: Endometrial polyp on ultrasound Code(s): N93.9 - Abnormal uterine and vaginal bleeding, unspecified Plan: Discussed with the patient the results of ultrasound showing abnormal endometrium, possible differential diagnosis discussed the patient included but not limited to: possible endometrial polyp or myoma or other endometrial masses, recommended hysteroscopy D&C possible polypectomy/myomectomy. Discussed with the patient the procedure , all benefits and risks including but not limited to inability to complete the procedure , insufficient endometrial tissue for a complete evaluation of the endometrial cavity , bleeding, infection, possible need for blood transfusion with all its risk ( HIV,syphilis, Hepatitis, anaphylaxis shock, others..), injury to bladder, rectum, possible need for laparoscopy/laparotomy or hysterectomy. The patient verbalized understanding and signed the consent. Instructions given the patient to schedule a 2 week postoperative appointment (2) TSH elevation: Code(s): R79.89 - Other specified abnormal findings of blood chemistry Plan: Discussed the patient elevated TSH, the patient saw her PCP and Synthroid dose has been increased. Coding Level of Care Code Est Pt Level 3 (20465) Diagnoses Abnormal uterine bleeding (AUB) N93.9 TSH elevation R79.89
== END 2023-09-18 14:40 | disposition home or self-care (01) ==
PROVIDERS: PCP Internal Medicine; Visit Provider Obstetrics & Gynecology
DX: N93.9 Abnormal uterine and vaginal bleeding, unspecified (principal); R79.89 Other specified abnormal findings of blood chemistry
CPT/HCPCS: 99213

== ENCOUNTER → 2023-09-18 13:58 | Outpatient (BNVA) | payer OTHER, SELFPAY | PROVIDERS: PCP Internal Medicine; Visit Provider Obstetrics & Gynecology | DX: N93.9 Abnormal uterine and vaginal bleeding, unspecified (principal); R94.6 Abnormal results of thyroid function studies; Z98.890 Other specified postprocedural states | CPT/HCPCS: 99212 ==

== ENCOUNTER 2023-09-21 10:10 | Day surgery (SDC) | payer OTHER, SELFPAY ==
--- NOTE | 2023-09-20 12:39 | HO.ANESPROP2 ---
Documented by User: Ashleigh Giraldo NP 09/20/23 12:40 HPI - Anesthesia Eval Consult details Narrative: 38yo F for D&C Hysteroscopy,possible myomectomy,possible polypectomy, PMFSH Active Problems Active Problems: All Active Problems (Updated 09/18/23 @ 14:26 by Abdifatah Palma MD) Abnormal uterine bleeding (AUB) (Acute) Back pain (Acute) Neck pain (Acute) Annual physical exam (Acute) Pharyngitis (Acute) Constipation (Acute) Blood per rectum (Acute) Hypothyroidism (Acute) Eye refraction disorder (Acute) Carpal tunnel syndrome on both sides (Acute) Encounter for annual routine gynecological examination (Acute) Tiredness (Acute) Mild anemia (Acute) TSH elevation (Acute) Vaginal discharge (Acute) Onychomycosis (Acute) Cervical cancer screening (Acute) Eczema (Acute) Seborrheic dermatitis (Acute) Obesity (BMI 30-39.9) (Acute) Past Medical History Medical History BMI 35.0-35.9,adult Bilateral finger numbness Annual physical exam Family History Family History Maternal Grandmother Breast cancer Maternal Aunt Breast cancer Mother Bipolar 1 disorder Surgical History Surgical History Status post tonsillectomy Social History Social History Housing: Apartment Alcohol intake: never Patient Tobacco Use Status: Former Tobacco user Tobacco use type: Cigarette Years Smoked: quit 2018 e-Cigarette/Vaping Use: Never Used Second Hand Smoke Exposure: No Current occupational status: employed Cognitive needs: No Hearing needs: No Vision needs: Yes Meds Allergies Allergy/AdvReac Type Severity Reaction Status Date / Time No Known Allergies Allergy Verified 09/18/23 14:00 [No Known Allergies*] Assessment and Plan Assessment Anesthesia Assessment: Chart Reviewed Documented by User: Dimitri Osman MD 09/21/23 12:37 PMFSH Past Medical History Medical History BMI 35.0-35.9,adult Bilateral finger numbness Annual physical exam Patient : No Family History Family History Maternal Grandmother Breast cancer Maternal Aunt Breast cancer Mother Bipolar 1 disorder Family history of problems with anesthesia: No Surgical History Surgical History Status post tonsillectomy History of Problems with Anesthesia: No Social History Social History Housing: Apartment Alcohol intake: never Patient Tobacco Use Status: Former Tobacco user Tobacco use type: Cigarette Years Smoked: quit 2019 e-Cigarette/Vaping Use: Never Used Second Hand Smoke Exposure: No Current occupational status: employed Cognitive needs: No Hearing needs: No Vision needs: Yes Meds Allergies Allergy/AdvReac Type Severity Reaction Status Date / Time No Known Allergies Allergy Verified 09/18/23 14:00 [No Known Allergies*] Exam Airway Mallampati Class: I TM Dist: <=3cm Neck ROM: Full Loose/Missing/Broken Teeth: Yes Heart: ok Lungs: ok Assessment and Plan Assessment Anesthesia Assessment: Anesthesia Plan Discussed Final Anesthetic Review Family History of Problems with Anesthesia: No History of Problems with Anesthesia: No NPO: Yes ASA Class: II Final Preanesthetic Review: No Changes in Pt Med Stat, Meds/Allgs Chart Reviewed, Consent Obtained/Reviewed and Anes Risks/Benef Reviewed Patient Risk: Intermediate Procedure Risk: Low Anesthetic Plan Anesthetic Plan: GA and Agree w/ Assess. and Plan Disposition: Standard PACU
[2023-09-21 10:19] VITALS: BMI 41.2
[2023-09-21 10:28] VITALS: BP 136/73; PULSE 89; RESP 20; TEMP 36.1; O2SAT 97
[2023-09-21 10:34] LABS: UPreg QC Valid YES; Urine Pregnancy NEGATIVE (NEGATIVE)
[2023-09-21] MEDS: Lactated Ringers 1,000 ML 100 ML IVCONT (10:44)
--- NOTE | 2023-09-21 11:51 | MHC.SHP ---
Pre-Procedural Eval Section A - 24 Hr Update-Section A only Date of Service: 09/21/23 The patient is an INPATIENT: No Changes since office visit: No Cold of Flu in the past 2 weeks, No New Medical Problems, No Changes in Medication and No Patient answered all questions The patient has been examined within 24 hours of the surgical procedure. The History & Physical has been completed within 30 days and I have reviewed it.: Yes Section B - Complete if H&P > 30 days Chief Complaint: Abnormal uterine and vaginal bleeding, unspecified Allergies: Allergies Allergy/AdvReac Type Severity Reaction Status Date / Time No Known Allergies Allergy Verified 09/18/23 14:00 [No Known Allergies*] Plan Diagnosis/Plan: Unchanged I have reviewed the history and physical and performed a pertinent physical examination on my patient. No changes have occurred unless specified. Time Spent With Patient Time: Total time managing care of this patient today ____ minutes.
--- NOTE | 2023-09-21 12:44 | PM.OP ---
Brief Operative Note Date of Service: 09/21/23 Pre-op diagnosis: Abnormal uterine bleeding, endometrial polyp by ultrasound Post-op diagnosis: same (2.5 cm endometrial polyp) Procedure: Hysteroscopy D&C, Polypectomy Surgeon: Abdifatah Palma MD Anesthesia: GLMA Was an Sap Bw Architect used for this Procedure?: No Estimated blood loss (mL): 0 Pathology: other (Endometrial Scrapping. Polyp) Condition: stable Disposition: PACU
--- NOTE | 2023-09-21 12:45 | W.PM.OPN ---
Operative Note Operative Note Date of Service: 09/21/23 Narrative: Preop Diagnosis: Abnormal uterine bleeding, Endometrial polyp by US Operation: Diagnostic Hysteroscopy, Dilataion & Curettage and polypectomy Post Op Diagnosis: 2.5 cm Endometrial Polyp QBL: Minimal Anesthesia: GLMA Surgeon: Abdifatah Palma MD Editor Managing Director: None Complication: None Pathology: Endometrial Scrapings, Endometrial polyp Procedure: The patient was put in the dorsal lithotomy position, scrubbed, and draped in the usual manner. A sterile speculum was inserted in the patient's vagina. The anterior lip of the cervix was grasped with a single tooth tenaculum. The cervix was dilated up to 5 mm, then the scope was inserted in the patient's uterus. Inspection revealed 2.5 cm endometrial polyp. The Myosure Reach device was used; it was introduced through the operative channel and polypectomy done with no complications. The scope was then taken out from the uterine cavity, sharp curettings was carried on with minimal to moderate amount of tissues retrieved. At the end of the procedure, all instruments were taken out of the patient uterine and vaginal cavity. The single tooth tenaculum was removed and homeostasis was assured using pressure,. The patient tolerated the procedure well and was transferred to the PACU in a stable condition.
[2023-09-21 12:54] VITALS: BP 145/78; PULSE 86; RESP 18; TEMP 36.3; O2SAT 96
[2023-09-21 12:59] VITALS: BP 122/85; PULSE 66; RESP 18; O2SAT 96
[2023-09-21 13:04] VITALS: BP 135/89; PULSE 70; RESP 20; O2SAT 97
[2023-09-21 13:09] VITALS: BP 129/87; PULSE 74; RESP 20; O2SAT 96
[2023-09-21 13:24] VITALS: BP 124/79; PULSE 60; RESP 20; TEMP 36.6; O2SAT 98
== END 2023-09-21 13:55 | disposition home or self-care (01) ==
PROVIDERS: PCP Internal Medicine; Visit Provider Obstetrics & Gynecology
PROC: 0UDB8ZZ Extraction of Endometrium, Via Natural or Artificial Opening Endoscopic (ICD-10-PCS; CPT 58558; principal; 2023-09-21 12:00)
DX: N93.9 Abnormal uterine and vaginal bleeding, unspecified (principal); D64.9 Anemia, unspecified
CPT/HCPCS: 58558; 81025; 88305; J1885; J2405; J2704; J3010

== ENCOUNTER → 2023-09-21 10:10 | Outpatient (BNV) | payer OTHER, SELFPAY | PROVIDERS: PCP Internal Medicine; Visit Provider Obstetrics & Gynecology | DX: N84.0 Polyp of corpus uteri (principal); N93.9 Abnormal uterine and vaginal bleeding, unspecified | CPT/HCPCS: 58558 ==

== ENCOUNTER 2023-10-09 14:08 | Outpatient (AMB) | payer OTHER, SELFPAY ==
[2023-10-09 14:12] VITALS: BP 118/77; BMI 35.2
--- NOTE | 2023-10-09 14:12 | A.OFFVIS_ITS ---
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 The pathology showed the following: A. Endometrium, curettage: Secretory endometrium; no atypia or hyperplasia identified. B. Endometrium, polypectomy: Fragments of endometrial polyp; no atypia identified The following workup for AUB has been done so far: H&H 12.7/37.6 TSH elevated, free T4 within normal, Synthroid dose has been adjusted by the patient's PCP GC/CT negative Co testing negative Pelvic ultrasound showed the following: Uterus: The uterus is anteverted and measures 10.6 x 4.7 x 5.6 cm. Uterine echotexture is heterogeneous. The double wall endometrial thickness is 21 mm. Echogenic focus within the endometrium measuring 2.6 x 1.1 x 2.0 cm with possible feeding vessel. Cervical nabothian cysts. Adnexa: Both ovaries are visualized. There is normal color flow to the adnexa. Right ovary measures 3.7 x 2.2 x 2.5 cm. Left ovary measures 3.8 x 2.4 x 2.3 cm. [facility] Medical History BMI 35.0-35.9,adult Bilateral finger numbness Annual physical exam Surgical History Status post tonsillectomy Family History Maternal Grandmother Breast cancer Maternal Aunt Breast cancer Mother Bipolar 1 disorder Social History Housing: Apartment Alcohol intake: never Patient Tobacco Use Status: Former Tobacco user Tobacco use type: Cigarette Years Smoked: quit 2019 e-Cigarette/Vaping Use: Never Used Second Hand Smoke Exposure: No Patient : No Current occupational status: employed Cognitive needs: No Hearing needs: No Vision needs: Yes Female Reproductive History Menstrual Age of Menarche: 13 Date of last menstrual period: 10/03/23 Review of Systems Const All systems reviewed & are unremarkable except as noted in HPI and below Reports as per HPI and Reports no additional complaints GI Reports no additional complaints Reports no additional complaints Physical Exam Vital Signs: Last Vital Signs BP 118/77 10/09/23 14:12 BMI result Body Mass Index 35.2 Assessment & Plan Assessment & Plan (1) Abnormal uterine bleeding (AUB): Comment: Endometrial polyp on ultrasound status post hysteroscopic polypectomy Code(s): N93.9 - Abnormal uterine and vaginal bleeding, unspecified Plan: Discussed with the patient the results of the work up done and options of treatment including Lysteda, BCP's, Mirena IUD, endometrial ablation and hysterectomy. All pros, cons, risks and benefits if each option was discussed with the patient and the patient decided to think about it and get back to us. All questions answered the patient verbalized understanding. Coding Level of Care Code Est Pt Level 3 (15754) Diagnoses Abnormal uterine bleeding (AUB) N93.9
== END 2023-10-09 16:07 | disposition home or self-care (01) ==
LOC: HO.HWS 14:08
PROVIDERS: PCP Internal Medicine; Visit Provider Obstetrics & Gynecology
DX: N93.9 Abnormal uterine and vaginal bleeding, unspecified (principal)
CPT/HCPCS: 99213

== ENCOUNTER → 2023-10-09 14:08 | Outpatient (BNVA) | payer OTHER, SELFPAY | PROVIDERS: PCP Internal Medicine; Visit Provider Obstetrics & Gynecology | DX: N93.9 Abnormal uterine and vaginal bleeding, unspecified (principal) | CPT/HCPCS: 99212 ==

== ENCOUNTER 2023-10-18 15:51 | Outpatient (REF) | payer OTHER, SELFPAY ==
[2023-10-18 18:19] LABS: Free T4 (Free Thyroxine) 0.91 ng/dL (0.71-1.85); Thyroid Stimulating Hormone 4.18 uIU/mL (0.32-4.0)
[2023-10-19 10:33] LABS: Thyroid Peroxidase Antibodies >900 IU/mL (<9)
== END 2023-10-18 15:52 | disposition home or self-care (01) ==
LOC: HO.LAB 15:51
PROVIDERS: PCP Internal Medicine; Visit Provider Internal Medicine
DX: E03.9 Hypothyroidism, unspecified (principal)
CPT/HCPCS: 36415; 84439; 84443; 86376

== ENCOUNTER 2023-11-08 15:00 | Outpatient (RCR) | payer OTHER, SELFPAY ==
--- NOTE | 2023-08-31 15:52 | MHC.PT.EP ---
[facility] [place] Office [place] Office [place] Office [address] Ramona Parks [address] [phone] F: [phone] F: [phone] F: [phone] F: [phone] Physical Therapy Plan of Care Date of Evaluation: 08/31/23 Date of Surgery: N/A Diagnosis: neck pain (RL) Assessment: pt is a 38 y/o female presenting to physical therapy w/ referring diagnosis of neck pain. Impairments include pain, decreased range of motion, decreased strength, impaired functional mobility, impaired postural awareness, and altered ambulation mechanics. pt is a good candidate for skilled PT due to age, potential remediation of impairments, typical disease/condition progression and prognosis, comorbidities, and motivation. pt would benefit from skilled PT intervention to provide a tailored strengthening and stretching exercise program, functional training, gait training, postural re-training, neuromuscular re-education, modalities as needed for pain, equipment safety demonstration. Frequency and Duration: The patient will be seen 2x/wk for 4 wks Short Term Goals: pt will be I w/ HEP to promote self-management of condition. pt will demo proper sitting posture lumbar roll to promote neutral spine w/ seated ADLs. Skilled Nursing Goals: pt will report a statistically significant improvement in self-reported outcome measure, NDI, to return to PLOF. pt will demo proper lifting mechanics x5 reps of 20-30# to promote return to lifting at work. Treatment Plan: Modalities to reduce pain, spasms and effusion. Manual therapy to restore motion and function. Therapeutic exercise to improve strength and flexibility. Neuromuscular re-education for posture and balance. Therapeutic activities to return to functional activities of daily living. Electronically signed by: Lisette Prado PT, DPT Please sign and return to therapist. Thank you for your referral.
--- NOTE | 2023-11-15 11:40 | MHC.PT.DC ---
[facility] [place] Office [place] Office [place] Office [address] Ramona Parks [address] [facility] [phone] F: [phone] F: [phone] F: [phone] F: [phone] Physical Therapy Discharge Report Diagnosis: neck pain (RL) Date of Surgery: N/A Date of Evaluation: 08/31/23 Date of Discharge: 11/15/23 Treatments to Date: 11 Cancellations to Date: 4 No Shows to Date: 0 Discharge Status: Improved Function Independent with HEP Discharge Summary: The patient was experiencing a small exacerbation of left sided pain today but otherwise has been doing well. She feels she is 80% back to baseline. At this time, she has plateaued and I encouraged her to continue with her home exercise program to continue strengthening on her own. She is independent with her home exercise program. The patient is discharged from this physical therapy plan of care. Electronically signed by: Lisette Prado PT, DPT Please sign and return to therapist. Thank you for your referral.
== END 2023-11-15 11:41 | disposition home or self-care (01) ==
LOC: HO.PT 15:00
PROVIDERS: PCP Internal Medicine; Visit Provider Nurse Practitioner Family
DX: M54.2 Cervicalgia (principal)
CPT/HCPCS: 97014; 97110; 97161; 97530

== ENCOUNTER 2023-12-28 12:22 | Outpatient (AMB) | payer OTHER, SELFPAY ==
[2023-12-28 12:25] VITALS: BP 110/64; PULSE 78; O2SAT 99; BMI 36.6
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
== END 2023-12-28 12:58 | disposition home or self-care (01) ==
PROVIDERS: Visit Provider Internal Medicine
DX: Z00.00 Encounter for general adult medical examination without abnormal findings (principal); N93.9 Abnormal uterine and vaginal bleeding, unspecified; Z68.36 Body mass index [BMI] 36.0-36.9, adult; E66.9 Obesity, unspecified; E03.9 Hypothyroidism, unspecified; M72.2 Plantar fascial fibromatosis; R21 Rash and other nonspecific skin eruption
CPT/HCPCS: 99395

== ENCOUNTER 2023-12-29 13:06 | Outpatient (REF) | payer OTHER, SELFPAY ==
[2023-12-29 13:21] LABS: MANUAL DIFF FLAG NO
[2023-12-29 13:46] LABS: Basophils Percent Auto 0.6 % (0-2); Eosinophils Absolute Auto 0.1 X10*3/uL (0.0-0.4); Eosinophils Percent Auto 1.1 % (0-4); Hematocrit 38.8 % (37.0-47.0); Hemoglobin 12.7 g/dl (12.0-16.0); Imm Gran Abs Auto 0.02 X10*3/uL (0.00-0.03); Imm Gran Pct Auto 0.3 % (0.0-0.4); Lymphocytes Absolute Auto 1.9 X10*3/uL (1.2-4.9); Lymphocytes Percent Auto 26.3 % (20-40); Mean Corpuscular HGB Conc 32.7 g/dl (31.0-35.0); Mean Corpuscular Hemoglobin 29.1 pg (27.0-33.0); Mean Platelet Volume 10.9 fL (9.4-12.3); Monocytes Absolute Auto 0.7 X10*3/uL (0.1-1.2); Monocytes Percent Auto 9.3 % (2-11); Neutrophils Absolute Auto 4.4 x10*3/uL (2.0-8.3); Neutrophils Percent Auto 62.4 % (45-73); Platelet Count 265 X10*3/uL (160-400); Red Blood Count 4.36 X10*6/uL (4.20-5.50); Red Cell Distribution Width 13.3 % (11.0-16.0); White Blood Count 7.1 X10*3/uL (4.8-10.8)
[2023-12-29 14:28] LABS: Alanine Aminotransferase 17 U/L (0-31); Albumin Level 4.4 g/dL (3.5-5.0); Alkaline Phosphatase 49 U/L (39-117); Anion Gap 13 (12-20); Aspartate Amino Transferase 20 U/L (5-31); Bilirubin Total 0.6 mg/dL (0.0-1.0); Blood Urea Nitrogen 16 mg/dL (9-16); Calcium 9.4 mg/dL (8.4-10.2); Carbon Dioxide 23 mmol/L (22-29); Chloride 108 mmol/L (96-108); Cholesterol 160 mg/dL (<200); Estimated Glomerular Filt Rate > 60; Glucose Random 74 mg/dL (60-115); HDL Cholesterol 49 mg/dL (>40); LDL Cholesterol Calculated 92 mg/dL (<100); Potassium 3.8 mmol/L (3.3-5.1); Sodium 140 mmol/L (135-145); Total Protein 7.4 g/dL (6.5-8.0); Triglycerides 95 mg/dL (<150)
[2023-12-29 14:45] LABS: Free T4 (Free Thyroxine) 0.91 ng/dL (0.71-1.85); Thyroid Stimulating Hormone 4.41 uIU/mL (0.32-4.0); Vitamin D 25-OH Total 24.5 ng/mL (>30)
[2023-12-29 15:15] LABS: Folate 11.1 ng/mL (> or = 4.0); Vitamin B12 708 pg/mL (200-900)
== END 2023-12-29 13:07 | disposition home or self-care (01) ==
LOC: HO.LAB 13:06
PROVIDERS: PCP Internal Medicine; Visit Provider Internal Medicine
DX: E03.9 Hypothyroidism, unspecified (principal); E78.00 Pure hypercholesterolemia, unspecified
CPT/HCPCS: 36415; 80053; 80061; 82306; 82607; 82746; 84439; 84443; 85025

== ENCOUNTER 2024-08-23 15:48 | Outpatient (AMB) | payer OTHER, SELFPAY ==
[2024-08-23 15:59] VITALS: BP 132/80; PULSE 83; O2SAT 99; BMI 37.8
--- NOTE | 2024-08-23 15:59 | MHC.PC.OV ---
Vital Signs 08/23/24 15:59 Height 5 ft 7 in Weight 241 lb 4 oz BMI 37.8 BP 132/80 Blood Pressure Location Lt brachial Position Sitting Pulse 83 Pulse Source Pulse Oximeter Pulse Oximetry (%) 99 Oxygen Delivery Method Room Air Intake Visit Reasons: 6 month follow up [employer] Required: No Accompanied by: Self / Same As Patient Allergies No Known Allergies [No Known Allergies*] Allergy (Verified 08/23/24 16:00) Tobacco use date assessed: 08/23/24 Dental Screening Dental Screen Date: 08/23/24 Did you have a dental visit in the last 12 months?: Yes Did you have a dental problem in the last 6 months where you did not have access to dental care?: No Was dental information given to patient?: Patient has dentist HPI 6 month follow up HPI Details The patient is a 39-year-old female presenting with concerns regarding weight management and hypothyroidism. She has not been adhering to her prescribed thyroid medication of 75 mcg. The patient acknowledges being aware of her overweight status and associates part of it with her thyroid condition. She reports a history of being at a healthier weight when more physically active but has struggled to maintain activity levels and manage weight gain after acquiring a car. The patient describes previous weight of 160 lbs and good health status several years ago without significant comparisons from healthcare providers as there were no frequent visits. The patient has decided to increase physical activity, specifically starting with speed walking. Her dietary habits include a focus on fruits, vegetables, garces and fish, with an aim to reduce intake of carbohydrates such as bread and pasta. She has expressed discomfort with reliance on medications and a desire to achieve weight loss through lifestyle modifications. The patient also reports intermittent pain under the right shoulder blade, which has not been linked to any specific condition or recurring symptoms. She has raised concerns about possible underlying conditions due to fatigue but does not link them exclusively to the thyroid condition, attributing them also to lifestyle factors such as work and parenting stress. Furthermore, there is a familial history of diabetes, motivating her to avoid long-term medication use for lifestyle-modifiable conditions. The patient has expressed concern about bruising, though no current bruising is reported. She is cautious about respiratory infections given the season and her children but does not typically receive vaccinations for flu or related illnesses. [facility] Medical History (Updated 12/28/23 @ 12:40 by Jackson Saavedra MD) Neck pain Back pain Pharyngitis Blood per rectum Eye refraction disorder Encounter for annual routine gynecological examination Mild anemia Tiredness Vaginal discharge Cervical cancer screening Eczema Seborrheic dermatitis BMI 35.0-35.9,adult Bilateral finger numbness Annual physical exam Surgical History Status post tonsillectomy Family History Maternal Grandmother Breast cancer Maternal Aunt Breast cancer Mother Bipolar 1 disorder Mental health disorder Social History Housing: Apartment Alcohol intake: never Patient Tobacco Use Status: Former Tobacco user Tobacco use type: Cigarette Years Smoked: quit 2019 e-Cigarette/Vaping Use: Never Used Second Hand Smoke Exposure: No Current occupational status: employed Cognitive needs: No Hearing needs: No Vision needs: Yes Female Reproductive History Menstrual Age of Menarche: 13 Questionnaire PHQ-9 Over the last 2 weeks, how often have you been bothered by any of the following problems? 1. Little interest or pleasure in doing things: not at all 2. Feeling down, depressed, or hopeless: not at all 3. Trouble falling or staying asleep, or sleeping too much: not at all 4. Feeling tired or having little energy: not at all 5. Poor appetite or overeating: not at all 6. Feeling bad about yourself - or that you are a failure or have let yourself or your family down: not at all 7. Trouble concentrating on things, such as reading the newspaper or watching television: not at all 8. Moving or speaking so slowly that other people could have noticed. Or the opposite - being so fidgety or restless that you have been moving around a lot more than usual: not at all 9. Thoughts that you would be better off or of hurting yourself in some way: not at all Total score: 0 Depression Screening Interpretation: Negative Depression Screening Done: Yes Source: Developed by Drs. Philip Remy, Rosaura Waterman, Randolph Vicente and colleagues, with an educational alberto from [employer]. Thrive Questionnaire Date Thrive assessed: 08/23/24 I am a: Patient What is your living situation today?: I have a steady place to live Within the past 12 months, did the food you bought not last and you didn't have the money to get more?: Never true Within the past 12 months, did you worry whether your food would run out before you got money to buy more?: Never true Do you have trouble paying for medicines?: No Do you have trouble getting transportation to medical appointments?: No Do you have trouble paying your heating and electricity bill?: No Do you have trouble taking care of your child, family member or friend?: No Do you have trouble with day-to-day activities such as bathing, preparing meals, shopping, managing finances, etc.?: No Are you currently unemployed and looking for a job?: No Are you interested in more education?: No Please select the resources that you would like help with: None Currently or been in a relationship where the following occur: No concerns reported THRIVE Score: 0 AUDIT C Alcohol Use Questionnaire (AUDIT-C) 1. How often do you have a drink containing alcohol?: Never 3. How often do you have six or more drinks on one occasion?: Never Total Score: 0 Score Reviewed/Action Taken: No JARON-7 AMB Questionnaire JARON-7 Date JARON - 7 assessed: 08/23/24 Feeling nervous, anxious, or on edge: 0 = Not at all Not being able to stop or control worryin = Not at all Worrying too much about different things: 0 = Not at all Trouble relaxin = Not at all Being so restless that it is hard to sit still: 0 = Not at all Becoming easily annoyed or irritable: 0 = Not at all Feeling afraid as if something awful might happen: 0 = Not at all Total JARON-7 score (0-4 normal; 5-9 mild; 10-14 moderate; 15-21 severe): 0 Source: Developed by Drs. Philip Remy, Rosaura Waterman, Randolph Vicente and colleagues, with an educational alberto from [employer]. JARON-7 Assessment Billing JARON-7 Assessment Tool: JARON-7 Assessment 36415 Physical exam (Primary Care) Vital Signs: Last Vital Signs Pulse 83 08/23/24 15:59 BP 132/80 08/23/24 15:59 Pulse Ox 99 08/23/24 15:59 Oxygen Delivery Method Room Air 08/23/24 15:59 BMI result Body Mass Index 37.8 Tobacco/Smoking Status: Tobacco use Status Tobacco use date assessed 08/23/24 08/23/24 16:05 Patient Tobacco Use Status Former Tobacco user 08/23/24 16:05 Tobacco use type Cigarette 08/23/24 16:05 e-Cigarette/Vaping Use Never Used 08/23/24 16:05 PHQ-9: PHQ-9 Score PHQ-9: Total score 0 08/23/24 16:29 Depression Screening Interpretation: Negative Thrive Assessment: Date of Thrive Assessment Date Thrive assessed 08/23/24 08/23/24 16:05 Currently or been in a relationship where the following occur: No concerns reported Coding Level of Care Code Est Pt Level 3 (59949) Diagnoses Hypothyroidism E03.9 Obesity (BMI 30-39.9) E66.9 Additional Codes JARON-7 Assessment Billing - JARON-7 Assessment Tool: JARON-7 Assessment 34634 ([id number]) Assessment & Plan Assessment & Plan (1) Hypothyroidism: Comment: TSH elevation September 2019 Code(s): E03.9 - Hypothyroidism, unspecified Category: Medical (2) Obesity (BMI 30-39.9): Code(s): E66.9 - Obesity, unspecified Category: Medical Plan - Thyroid dysfunction: Blood work is ordered to assess current thyroid function TSH level) before adjustments to medication. Re-emphasize the importance of medication adherence. - Obesity and Deconditioning: Encourage initiation of regular physical activity with speed walking, starting at 15 minutes daily, and increase gradually as tolerated. Encourage dietary changes to reduce carbohydrate intake and emphasize a balanced diet. Monitor weight changes and discuss further interventions if needed. - Evaluation of pain: Reassure patient regarding intermittent muscle pain under the shoulder blade as no indicators of serious pathology were noted. Encourage continued evaluation if symptoms persist or change. - General wellness: Common laboratory tests are ordered to assess comprehensive metabolic panel including kidney, liver functions, cholesterol levels, and glucose levels given family history of diabetes. Ensure the patient is aware of the need for fasting before the tests. - Preventative Care: Discuss the importance of vaccinations, especially during flu season, considering prevalent viral infections. - Follow-up: Plan for re-evaluation in three months to assess progress with weight management and monitor thyroid levels post-laboratory results. Orders: Orders Comprehensive Met. Panel Today E03.9 - Hypothyroidism, unspecified Magnesium Today E03.9 - Hypothyroidism, unspecified Thyroid Stimulating Hormone Today E03.9 - Hypothyroidism, unspecified Free T4 (Free Thyroxine) Today E03.9 - Hypothyroidism, unspecified Complete Blood Count Auto Diff Today E03.9 - Hypothyroidism, unspecified Lipid Panel Today E03.9 - Hypothyroidism, unspecified, E78.00 - Pure hypercholesterolemia, unspecified Vitamin B12 and Folate Today E03.9 - Hypothyroidism, unspecified Vitamin D 25-OH Total Today E03.9 - Hypothyroidism, unspecified
== END 2024-08-23 16:46 | disposition home or self-care (01) ==
PROVIDERS: PCP Internal Medicine; Visit Provider Internal Medicine
DX: E03.9 Hypothyroidism, unspecified (principal); E66.9 Obesity, unspecified; Z68.37 Body mass index [BMI] 37.0-37.9, adult

== ENCOUNTER → 2024-08-23 15:48 | Outpatient (BNVA) | payer OTHER, SELFPAY | PROVIDERS: PCP Internal Medicine; Visit Provider Internal Medicine | DX: E03.9 Hypothyroidism, unspecified (principal); E66.9 Obesity, unspecified; Z68.37 Body mass index [BMI] 37.0-37.9, adult; Z79.899 Other long term (current) drug therapy | CPT/HCPCS: 96127 ==

== ENCOUNTER 2024-09-16 13:52 | Outpatient (REF) | payer OTHER, SELFPAY ==
[2024-09-16 14:06] LABS: MANUAL DIFF FLAG NO
[2024-09-16 14:30] LABS: Basophils Percent Auto 0.4 % (0-2); Eosinophils Absolute Auto 0.1 X10*3/uL (0.0-0.4); Hematocrit 35.2 % (37.0-47.0); Hemoglobin 11.5 g/dl (12.0-16.0); Imm Gran Abs Auto 0.02 X10*3/uL (0.00-0.03); Imm Gran Pct Auto 0.3 % (0.0-0.4); Lymphocytes Absolute Auto 1.8 X10*3/uL (1.2-4.9); Lymphocytes Percent Auto 26.3 % (20-40); Mean Corpuscular HGB Conc 32.7 g/dl (31.0-35.0); Mean Corpuscular Hemoglobin 27.2 pg (27.0-33.0); Mean Corpuscular Volume 83.2 fL (80.0-98.0); Mean Platelet Volume 10.8 fL (9.4-12.3); Monocytes Absolute Auto 0.5 X10*3/uL (0.1-1.2); Monocytes Percent Auto 7.7 % (2-11); Neutrophils Absolute Auto 4.4 x10*3/uL (2.0-8.3); Neutrophils Percent Auto 64.3 % (45-73); Platelet Count 315 X10*3/uL (160-400); Red Blood Count 4.23 X10*6/uL (4.20-5.50); Red Cell Distribution Width 13.3 % (11.0-16.0); White Blood Count 6.9 X10*3/uL (4.8-10.8)
[2024-09-16 15:12] LABS: Alanine Aminotransferase 27 U/L (0-31); Albumin Level 4.1 g/dL (3.5-5.0); Anion Gap 11 (12-20); Aspartate Amino Transferase 28 U/L (5-31); Bilirubin Total 0.5 mg/dL (0.0-1.0); Blood Urea Nitrogen 13 mg/dL (9-16); Calcium 9.1 mg/dL (8.4-10.2); Carbon Dioxide 24 mmol/L (22-29); Chloride 108 mmol/L (96-108); Cholesterol 169 mg/dL (<200); Estimated Glomerular Filt Rate > 60; Glucose Random 75 mg/dL (60-115); HDL Cholesterol 48 mg/dL (>40); LDL Cholesterol Calculated 97 mg/dL (<100); Magnesium 1.7 mg/dL (1.6-2.6); Potassium 3.7 mmol/L (3.3-5.1); Sodium 139 mmol/L (135-145); Total Protein 7.4 g/dL (6.5-8.0); Triglycerides 120 mg/dL (<150)
--- OUTSIDE RECORDS SUMMARY | 2024-09-16 15:24 | XMS_ITS | Clinical Summary ---
Demographics Address [address] [place] [address] Work Phone Preferred Language en Marital Status Unknown Yarsanism Affiliation Unknown Race Other Race Ethnic Group Unknown Author Organization [employer] Address [address] [place] [address] Care Team Providers Care Instructional Leader Name Role Phone Unavailable Primary Care Provider Unavailabl e Social History Tobacco Use Types Packs/Day Years Used Date Smoking Tobacco: Never Assessed Comments Unknown Sex and Gender Information Value Date Recorded Sex Assigned at Female 06/13/2022 10:37 AM EDT Legal Sex Female 10:37 AM EDT Gender Identity Choose not to disclose 10:37 AM EDT Sexual Orientation Don't know 06/13/2022 10 :37 AM EDT Plan of Treatment Health Maintenance Due Date Last Done Comments Depression Screening 1985 HIV Screening 1985 SDOH Screening 1985 Alcohol/Substance Use Screening 1997 Tobacco Screening 1997 Family Planning (PISQ) 2000 Hepatitis C Screening 2003 Pap Smear 2006 Cervical Cancer Screening 2015 HPV/Cotest 2015 COVID-19 Vaccine ( season) 2024 Influenza Vaccine (#1) 2024 07/20/2020, 2016 DTaP/Tdap/Td Vaccines (7 - Td or Tdap) 09/23/2026 09/23/2016, 03/09/2000, 02/19/1992, Additional history exists Zoster Vaccines (1 of 2) 2035 RSV Patients and Patients Aged 60 years or older (1 - 1-dose 75+ series) 2060 HIB Vaccines Completed 03/30/1987 IPV Vaccines Completed 02/19/1992, 08/1986, 1985, Additional history exists Hepatitis B Vaccines Completed 09/29/2017, 04/20/2017, 03/23/2017, Additional history exists HPV Vaccines Aged Out No longer eligi ble based on patient's age to complete this topic Hepatitis A Vaccines Aged Out No long er eligible based on patient's age to complete this topic Meningococcal Vaccine Aged Out No sarah dayday eligible based on patient's age to complete this topic Pneumococcal Vaccine: Pediatrics (0 to 5 Years) and At-Risk Patients (6 to 49) Years) Aged Out No longer eligible based on patient's age to complete this topic RSV under 20 months Aged Out No longe r eligible based on patient's age to complete this topic Rotavirus Vaccines Aged Out No longer eligible based on patient's age to complete this topic Insurance * Guarantor: Honey Mazariegos Account Type Relation to Patient Date of Phone Billing Address Personal/Family Self 1985 [address] [place] [id number] [facility] STANDARD * Guarantor: Honey Mazariegos Account Type Relation to Patient Date of Phone Billing Address Personal/Family Self [address] [place] [id number] * Guarantor: Honey Mazariegos Account Type Relation to Patient Date of Phone Billing Address Personal/Family Self [address] [place] [phone] * Guarantor: Honey Mazariegos Account Type Relation to Patient Date of Phone Billing Address Personal/Family Self [address] [place] [address]
[2024-09-16 15:25] LABS: Free T4 (Free Thyroxine) 0.83 ng/dL (0.71-1.85); Thyroid Stimulating Hormone 7.82 uIU/mL (0.32-4.0); Vitamin D 25-OH Total 18.3 ng/mL (>30)
[2024-09-16 15:33] LABS: Folate 9.3 ng/mL (> or = 4.0); Vitamin B12 598 pg/mL (200-900)
[2024-09-16 18:27] LABS: Alkaline Phosphatase 56 U/L (39-117)
== END 2024-09-16 13:53 | disposition home or self-care (01) ==
LOC: HO.LAB 13:52
PROVIDERS: PCP Internal Medicine; Visit Provider Internal Medicine
DX: E03.9 Hypothyroidism, unspecified (principal); E78.00 Pure hypercholesterolemia, unspecified
CPT/HCPCS: 36415; 80053; 80061; 82306; 82607; 82746; 83735; 84439; 84443; 85025

== ENCOUNTER 2024-11-22 08:52 | Outpatient (REF) | payer OTHER, MEDICAID, SELFPAY ==
--- OUTSIDE RECORDS SUMMARY | 2024-11-22 09:05 | XMS_ITS | Clinical Summary ---
Demographics Address [address] [place] [address] Work Phone Preferred Language en Marital Status Unknown Spiritism Affiliation Unknown Race Other Race Ethnic Group Unknown Author Organization [employer] Address [address] [place] [address] Care Team Providers Care Online User Experience Strategist Name Role Phone Unavailable Primary Care Provider [...] Phone Billing Address Personal/Family Self 1985 [address] [facility] [address] [place] [id number] [facility] * Guarantor: Honey Mazariegos Account Type Relation to Patient Date of Phone Billing Address Personal/Family Self [address] [facility] [address] [place] [id number] * Guarantor: Honey Mazariegos Account Type Relation to Patient Date of Phone Billing Address Personal/Family Self [address] [address] [place] [id number] * Guarantor: Honey Mazariegos Account Type Relation to Patient Date of Phone Billing Address Personal/Family Self [address] [facility] [address] [place] [address]
[2024-11-22 10:29] LABS: Free T4 (Free Thyroxine) 1.17 ng/dL (0.71-1.85); Thyroid Stimulating Hormone 2.05 uIU/mL (0.32-4.0)
== END 2024-11-22 08:53 | disposition home or self-care (01) ==
LOC: HO.LAB 08:52
PROVIDERS: PCP Internal Medicine; Visit Provider Internal Medicine
DX: E03.9 Hypothyroidism, unspecified (principal)
CPT/HCPCS: 36415; 84439; 84443

== ENCOUNTER 2024-11-22 15:22 | Outpatient (AMB) | payer OTHER, MEDICAID, SELFPAY ==
--- NOTE | 2024-11-22 15:25 | A.OFFPC_ITS ---
Vital Signs 11/22/24 15:26 Height 5 ft 7 in Weight 243 lb BMI 38.1 BP 128/68 Blood Pressure Location Lt brachial Position Sitting Pulse 71 Pulse Source Pulse Oximeter Pulse Oximetry (%) 98 Oxygen Delivery Method Room Air Intake Visit Reasons: hypothyroid Allergies No Known Allergies [No Known Allergies*] Allergy (Verified 11/22/24 15:27) Tobacco use date assessed: 08/23/24 Dental Screening Dental Screen Date: 08/23/24 [facility] Medical History (Updated 11/22/24 @ 15:48 by Jackson Saavedra MD) Neck pain Back pain Pharyngitis Blood per rectum Eye refraction disorder Encounter for annual routine gynecological examination Mild anemia Tiredness Vaginal discharge Cervical cancer screening Eczema Seborrheic dermatitis BMI 35.0-35.9,adult Bilateral finger numbness Annual physical exam Surgical History Status post tonsillectomy Family History Maternal Grandmother Breast cancer Maternal Aunt Breast cancer Mother Bipolar 1 disorder Mental health disorder Social History Housing: Apartment Alcohol intake: never Patient Tobacco Use Status: Former Tobacco user Tobacco use type: Cigarette Years Smoked: quit 2019 e-Cigarette/Vaping Use: Never Used Second Hand Smoke Exposure: No Current occupational status: employed Cognitive needs: No Hearing needs: No Vision needs: Yes Female Reproductive History Menstrual Age of Menarche: 13 Questionnaire PHQ-9 Over the last 2 weeks, how often have you been bothered by any of the following problems? 1. Little interest or pleasure in doing things: not at all 2. Feeling down, depressed, or hopeless: not at all 3. Trouble falling or staying asleep, or sleeping too much: not at all 4. Feeling tired or having little energy: not at all 5. Poor appetite or overeating: not at all 6. Feeling bad about yourself - or that you are a failure or have let yourself or your family down: not at all 7. Trouble concentrating on things, such as reading the newspaper or watching television: not at all 8. Moving or speaking so slowly that other people could have noticed. Or the opposite - being so fidgety or restless that you have been moving around a lot more than usual: not at all 9. Thoughts that you would be better off or of hurting yourself in some way: not at all Total score: 0 Depression Screening Interpretation: Negative Depression Screening Done: Yes Source: Developed by Drs. Philip Remy, Rosaura Waterman, Randolph Vicente and colleagues, with an educational alberto from [employer]. Thrive Questionnaire Date Thrive assessed: 08/23/24 AUDIT C Alcohol Use Questionnaire (AUDIT-C) 1. How often do you have a drink containing alcohol?: Never 3. How often do you have six or more drinks on one occasion?: Never Total Score: 0 Score Reviewed/Action Taken: No JARON-7 AMB Questionnaire JARON-7 Date JARON - 7 assessed: 08/23/24 Source: Developed by Drs. Philip Remy, Rosaura Waterman, Randolph Vicente and colleagues, with an educational alberto from [employer]. Physical exam (Primary Care) Vital Signs: Last Vital Signs Pulse 71 11/22/24 15:26 BP 128/68 11/22/24 15:26 Pulse Ox 98 11/22/24 15:26 Oxygen Delivery Method Room Air 11/22/24 15:26 BMI result Body Mass Index 38.1 Tobacco/Smoking Status: Tobacco use Status Tobacco use date assessed 08/23/24 11/22/24 15:28 Patient Tobacco Use Status Former Tobacco user 11/22/24 15:28 Tobacco use type Cigarette 11/22/24 15:28 e-Cigarette/Vaping Use Never Used 11/22/24 15:28 PHQ-9: PHQ-9 Score PHQ-9: Total score 0 11/22/24 15:33 Depression Screening Interpretation: Negative Thrive Assessment: Date of Thrive Assessment Date Thrive assessed 08/23/24 11/22/24 15:28 Const General: alert; No acute distress Eyes Conjunctivae: conjunctivae normal Resp Auscultation: clear to auscultation bilaterally Cardio Rate: regular rate Rhythm: regular rhythm GI Inspection: Yes normal to inspection Extrem General: Yes normal to inspection and No edema Coding Level of Care Code Est Pt Level 4 (90367) Diagnoses Hypothyroidism E03.9 Anemia D64.9 Vitamin D deficiency E55.9 Obesity (BMI 30-39.9) E66.9 Assessment & Plan Assessment & Plan (1) Hypothyroidism: Comment: TSH elevation September 2019 Code(s): E03.9 - Hypothyroidism, unspecified Category: Medical Plan: Continue with present thyroid dose of levothyroxine 88 mcg once a day (2) Anemia: Code(s): D64.9 - Anemia, unspecified Category: Medical Plan: Continue to follow-up. (3) Vitamin D deficiency: Code(s): E55.9 - Vitamin D deficiency, unspecified Category: Medical Plan: Discussed about vitamin-D 4389-6149 units once a day (4) Obesity (BMI 30-39.9): Code(s): E66.9 - Obesity, unspecified Category: Medical Plan: Continue with diet and exercise Plan History of Present Illness The patient is a 39-year-old female presenting with a follow-up visit concerning her hypothyroidism management and evaluation of laboratory results showing mild anemia. In September, her blood work indicated mild anemia with hemoglobin levels of 11.5 g/dL, slightly below the normal range, possibly influenced by menstrual cycles. The anemia has not been previously diagnosed but has been documented with accompanying mild general symptoms. For hypothyroidism, she remains on a daily dose of levothyroxine 88 mcg with normal thyroid function tests as of September. She reports adherence to this therapy regimen. The patient also displays vitamin D deficiency and is advised to take padron pplementation between 1000 to 2000 units daily, especially common in residents of the [facility]. An adjustment in supplementation and sun exposure during appropriate seasons has been discussed. Engaging in physical activities like swimming and use of a walking pad supports weight management endeavors, although weight loss remains challenging. Health Maintenance - Continuation of levothyroxine 88 mcg daily for hypothyroidism management. - Advised vitamin D supplementation of 1000 to 2000 units daily. - Discussion on sun exposure benefits to improve vitamin D levels. - Engaged in regular physical activity, including swimming and daily walking, as part of weight management and overall wellness. Social History - Engages in regular physical activity: swimming and using a walking pad for weight management. - Invested in [facility] membership to facilitate consistent exercise regimen with family. - Drinks large quantities of water daily, avoids soda. Review of Systems - Constitutional: Denies hot flashes. - Gastrointestinal: Reports normal bowel movements. - Genitourinary: Reports normal urination. - Musculoskeletal: Reports occasional muscular tightness without specific peroneal involvement. - Integumentary: Denies any rashes or skin concerns. - Neurological: Denies any recent dizziness or headaches. Physical Exam Results - Labs: - Mild anemia indicated with hemoglobin at 11.5 g/dL. - Normal thyroid function tests. - Vitamin D levels low as discussed. - Normal kidney function. - Normal blood sugar and electrolytes. - Cholesterol LDL at 97 mg/dL. Plan I will continue the patient's current levothyroxine regimen of 88 mcg daily as thyroid levels are stable. We discussed the presence of mild anemia, potentially related to menstruation, recommending no new interventions but maintaining monitoring. The patient remains advised to optimize lifestyle with swimming and walking, and vitamin D supplementation is recommended to counteract suboptimal levels. No immediate changes necessary besides optimizing these health maintenance measures, and anticipatory guidance is provided as we schedule future comprehensive evaluations. Patient was informed and verbally consented to the use of an ambient scribe for clinic note documentation during this visit. Discussion Notes I reviewed the management for hypothyroidism, continuing levothyroxine 88 mcg daily. We discussed mild anemia's potential link with menstrual cycles and vitamin D deficiency, emphasizing continued supplementation and lifestyle adjustments. The conversation included anticipatory guidance for weight control amid functional activity. Re-affirmed the importance of continued regular follow-up visits aligning with her routine physical exams, addressing any concerns and progress updates as required. Patient Instructions - Continue using levothyroxine 88 mcg daily as prescribed. - Start taking vitamin D supplements, 1000 to 2000 units daily. - Maintain physical activity including swimming and regular walking. - Increase sun exposure during suitable conditions to aid vitamin D levels. - Monitor any changes in well-being and symptoms, and contact if any concerns arise. - Routine follow-up visits for health evaluations and updates on management plans. Medications: Changed From levothyroxine 88 mcg PO DAILY 30 days 30 tabs 3RF E03.9 - Hypothyroidism, unspecified To levothyroxine 88 mcg PO DAILY 90 days 90 tabs 1RF E03.9 - Hypothyroidism, unspecified
[2024-11-22 15:26] VITALS: BP 128/68; PULSE 71; O2SAT 98; BMI 38.1
== END 2024-11-22 15:58 | disposition home or self-care (01) ==
LOC: HO.HMCH 15:22
PROVIDERS: PCP Internal Medicine; Visit Provider Internal Medicine
DX: E03.9 Hypothyroidism, unspecified (principal); E66.9 Obesity, unspecified; Z68.38 Body mass index [BMI] 38.0-38.9, adult; D64.9 Anemia, unspecified; E55.9 Vitamin D deficiency, unspecified

== ENCOUNTER 2025-06-27 15:48 | Outpatient (AMB) | payer OTHER, MEDICAID, SELFPAY ==
[2025-06-27 16:02] VITALS: BP 132/82; TEMP 36.3; O2SAT 56; BMI 38.6
--- NOTE | 2025-06-27 16:02 | A.OFFPC_ITS ---
Vital Signs 06/27/25 16:02 06/27/25 16:35 Height 5 ft 7 in Weight 246 lb 6 oz BMI 38.6 BP 132/82 Blood Pressure Location Lt brachial Position Sitting Pulse Source Pulse Oximeter Temp 97.3 F Temp Source Temporal Artery Scan Pulse Oximetry (%) 56 L 96 Oxygen Delivery Method Room Air Room Air Intake Visit Reasons: Annual PE Allergies No Known Allergies (No Known Allergies*) Allergy (Verified 06/27/25 16:03) Medication List - Last Reconciled 06/27/25 by Jackson Saavedra MD Tobacco use date assessed: 08/23/24 Dental Screening Dental Screen Date: 08/23/24 HPI Annual PE HPI Details rectal bleeding - last november then had spotting, last one 2 months [facility] Medical History (Updated 06/27/25 @ 16:53 by Jackson Saavedra MD) Hypothyroidism TSH elevation Neck pain Back pain Pharyngitis Blood per rectum Eye refraction disorder Encounter for annual routine gynecological examination Mild anemia Tiredness Vaginal discharge Cervical cancer screening Eczema Seborrheic dermatitis BMI 35.0-35.9,adult Bilateral finger numbness Annual physical exam Surgical History Status post tonsillectomy Family History Maternal Grandmother Breast cancer Maternal Aunt Breast cancer Mother Bipolar 1 disorder Mental health disorder Social History Housing: Apartment Alcohol intake: never Patient Tobacco Use Status: Former Tobacco user Tobacco use type: Cigarette Years Smoked: quit 2019 e-Cigarette/Vaping Use: Never Used Second Hand Smoke Exposure: No Current occupational status: employed Cognitive needs: No Hearing needs: No Vision needs: Yes Female Reproductive History Menstrual Age of Menarche: 13 Questionnaire PHQ-9 Over the last 2 weeks, how often have you been bothered by any of the following problems? 1. Little interest or pleasure in doing things: not at all 2. Feeling down, depressed, or hopeless: not at all 3. Trouble falling or staying asleep, or sleeping too much: not at all 4. Feeling tired or having little energy: not at all 5. Poor appetite or overeating: not at all 6. Feeling bad about yourself - or that you are a failure or have let yourself or your family down: not at all 7. Trouble concentrating on things, such as reading the newspaper or watching television: not at all 8. Moving or speaking so slowly that other people could have noticed. Or the opposite - being so fidgety or restless that you have been moving around a lot more than usual: not at all 9. Thoughts that you would be better off or of hurting yourself in some way: not at all Total score: 0 Depression Screening Interpretation: Negative Depression Screening Done: Yes Source: Developed by Drs. Philip Remy, Rosaura Waterman, Randolph Vciente and colleagues, with an educational alberto from [employer]. Thrive Questionnaire Date Thrive assessed: 06/25/25 I am a: Patient What is your living situation today?: I have a steady place to live Within the past 12 months, did the food you bought not last and you didn't have the money to get more?: Never true Within the past 12 months, did you worry whether your food would run out before you got money to buy more?: Never true Do you have trouble paying for medicines?: No Do you have trouble getting transportation to medical appointments?: No Do you have trouble paying your heating and electricity bill?: No Do you have trouble taking care of your child, family member or friend?: No Do you have trouble with day-to-day activities such as bathing, preparing meals, shopping, managing finances, etc.?: No Are you currently unemployed and looking for a job?: No Are you interested in more education?: Yes Please select the resources that you would like help with: None Currently or been in a relationship where the following occur: No concerns reported THRIVE Score: 0 AUDIT C Alcohol Use Questionnaire (AUDIT-C) 1. How often do you have a drink containing alcohol?: Never 3. How often do you have six or more drinks on one occasion?: Never Total Score: 0 JARON-7 AMB Questionnaire JARON-7 Date JARON - 7 assessed: 08/23/24 Feeling nervous, anxious, or on edge: 0 = Not at all Not being able to stop or control worryin = Not at all Worrying too much about different things: 0 = Not at all Trouble relaxin = Not at all Being so restless that it is hard to sit still: 0 = Not at all Becoming easily annoyed or irritable: 0 = Not at all Feeling afraid as if something awful might happen: 0 = Not at all Total JARON-7 score (0-4 normal; 5-9 mild; 10-14 moderate; 15-21 severe): 0 Source: Developed by Drs. Philip Remy, Rosaura Waterman, Randolph Vicente and colleagues, with an educational alberto from [employer]. Review of Systems Const Denies poor appetite and Denies weakness Eyes Denies no additional complaints ENT Reports Normal hearing present, Denies dizziness, Denies nasal congestion, Denies tinnitus and Denies sore throat Card Denies chest pain, Denies syncope, Denies rapid heart rate and Denies dyspnea Resp Denies cough and Denies dyspnea GI Denies change in stool character, Reports constipation, Denies diarrhea, Denies nausea and Denies vomiting Denies urinary frequency, Denies difficulty voiding and Denies dysuria Neuro Reports Normal hearing present, Denies confusion, Denies dizziness, Denies syncope and Denies weakness Psych Denies confusion Physical exam (Primary Care) Vital Signs: Last Vital Signs Temp 97.3 F 06/27/25 16:02 BP 132/82 06/27/25 16:02 Pulse Ox 56 L 06/27/25 16:02 Oxygen Delivery Method Room Air 06/27/25 16:02 BMI result Body Mass Index 38.6 Tobacco/Smoking Status: Tobacco use Status Tobacco use date assessed 08/23/24 06/27/25 16:03 Patient Tobacco Use Status Former Tobacco user 06/27/25 16:03 Tobacco use type Cigarette 06/27/25 16:03 e-Cigarette/Vaping Use Never Used 06/27/25 16:03 PHQ-9: PHQ-9 Score PHQ-9: Total score 0 06/27/25 16:10 Depression Screening Interpretation: Negative Thrive Assessment: Date of Thrive Assessment Date Thrive assessed 06/25/25 06/27/25 16:03 Currently or been in a relationship where the following occur: No concerns reported Const General: alert and awake; No confusion Orientation/consciousness: No confusion HENMT Head: Yes normocephalic Ears: external ears normal and TM's normal bilaterally Face and sinus: Yes normal facial exam Mouth: moist mucous membranes Throat: Yes tonsils normal Eyes Conjunctivae: conjunctivae normal Pupils: Equal, round and reactive pupils present and Pupil accommodation reflex normal Direct Ophthalmoscopy: normal light reflex Neck Neck: No lymphadenopathy Thyroid: Thyroid normal Chest Chest palpation & inspection: normal inspection of the chest Resp Effort & Inspection: normal respiratory effort and no audible wheezes Auscultation: clear to auscultation bilaterally, no crackles, no wheezes and lung sounds not diminished Cardio Rate: regular rate Rhythm: regular rhythm Peripheral pulses: radial pulses present and dorsalis pedis present GI Other: guaiac negative Palpation (GI): no masses Auscultation: normal bowel sounds and normoactive bowel sounds Skin General skin exam: no rashes or lesions noted Rashes: no rashes Neuro General: deep tendon reflexes 2+ bilaterally and No confusion Cranial nerves: Yes Equal, round and reactive pupils present, Yes Midline tongue present, Yes Normal hearing present and Yes Ability to bilaterally elevate shoulders present Cognition (Neuro): normal cognition Gait exam (Neuro): Normal gait present Motor exam (neuro): 5/5 motor strength present throughout Deep tendon reflexes (DTR's): Right brachioradialis reflex intensity grade: 2+, Left brachioradialis reflex intensity grade: 2+, Right patellar reflex intensity grade: 2+ and Left patellar reflex intensity grade: 2+ Extrem General: No edema Coding Level of Care Code Est Pt Prev Care 40-64y(88892) Diagnoses Annual physical exam Z00.00 Obesity (BMI 30-39.9) E66.9 Vitamin D deficiency E55.9 Anemia D64.9 Breast cancer screening by mammogram Z12.31 Hypothyroidism E03.9 Rectal bleeding K62.5 Upper back pain on right side M54.9 Assessment & Plan Assessment & Plan (1) Annual physical exam: Code(s): Z00.00 - Encounter for general adult medical examination without abnormal findings Category: Medical Plan: Patient is advised to eat healthy, keep well hydrated, keep active and have adequate sleep. (2) Obesity (BMI 30-39.9): Code(s): E66.9 - Obesity, unspecified Category: Medical Plan: Diet and exercise (3) Vitamin D deficiency: Code(s): E55.9 - Vitamin D deficiency, unspecified Category: Medical Plan: Vitamin-D 3318-2127 units once a day (4) Anemia: Code(s): D64.9 - Anemia, unspecified Category: Medical Plan: Continue to follow-up (5) Breast cancer screening by mammogram: Code(s): Z12.31 - Encounter for screening mammogram for malignant neoplasm of breast Category: Medical Plan: Reminded about mammogram (6) Hypothyroidism: Comment: TSH elevation September 2019 Code(s): E03.9 - Hypothyroidism, unspecified Category: Medical Plan: Continue with thyroid medication (7) Rectal bleeding: Code(s): K62.5 - Hemorrhage of anus and rectum Category: Medical (8) Upper back pain on right side: Code(s): M54.9 - Dorsalgia, unspecified Category: Medical Plan History of Present Illness The patient is a 40-year-old obese female presenting for a physical exam. Her medical history is significant for hypothyroidism, abnormal uterine bleeding status post hysteroscopic polypectomy, and anemia. She has been non-adherent with her thyroid medication, levothyroxine 88 mcg. Blood work from September 2024 revealed mild anemia with a hemoglobin of 11.5 and hematocrit of 35.2. Labs in November 2024 showed a TSH in the normal range and low vitamin D. The patient reports intermittent rectal bleeding, describing it as spotting that has occurred two to three times in total since her last visit. The last episode was approximately a couple of months ago. She also notes a single recent episode of heart palpitations and a long-standing intermittent tightness on her right back. Family history is significant for breast cancer in her aunt and grandmother, and heart disease on her maternal side. Her mother at age 50 from sepsis related to a kidney stone. The patient does not use alcohol or tobacco products. Health Maintenance The patient is due for a mammogram for breast cancer screening due to her age and family history. She is advised to take vitamin D 1,000-2,000 units daily for her known deficiency. She was encouraged to continue her diet and exercise efforts. A follow-up visit is scheduled for three months. Social History - Alcohol Use: Denies alcohol consumption. - Tobacco Use: Denies smoking. - Exercise: Reports going to the [employer] and walking. - Diet: Reports drinking a lot of water and trying to eat healthy. - Family: The patient has children. Review of Systems - Constitutional: Denies fever. - Reports weight gain of approximately 10 pounds. - Eyes: Reports floaters. - Denies pain. - HEENT: Reports psoriasis in her ears but states hearing is good. - Denies problems with swallowing. - Cardiovascular: Reports a single recent episode of heart palpitations. - Denies syncope or dizziness. - Respiratory: Denies dyspnea on exertion, chest heaviness, or wheezing. - Gastrointestinal: Reports intermittent hematochezia with 2-3 episodes of spotting over the last few months. - Reports daily bowel movements and denies straining. - Denies nausea, vomiting, or heartburn. - Genitourinary: Denies nocturia. - Musculoskeletal: Reports intermittent tightness on the right side of her back. - Skin: Reports a history of psoriasis. - Denies swelling. Physical Exam General: Cooperative, healthy appearing, comfortable, no acute distress and well developed Orientation: Patient oriented x3 Limitations: No limitations Head: Normal to inspection Ears: Hearing grossly normal bilaterally, but patient reports psoriasis affe cting ears Nose: Normal external nose present Face and sinus: Normal facial exam Eyes: Appearance normal, both eyes and all related structures; patient reports floaters Neck: Normal visual inspection and Yes full ROM Respiratory: Normal respiratory effort and able to speak in complete sentences. Clear to auscultation bilaterally Cardiovascular: Regular rate and rhythm. Normal S1 and S2; patient reports occasional heart fluttering GI: Normal to inspection. Soft to palpation and nontender; patient reports occasional rectal bleeding and knotted feeling in abdomen Skin: No rashes or lesions noted; patient reports psoriasis Neuro: Patient oriented x3 Extremities: Normal to inspection Results - Labs (September 2024): Mild anemia with Hgb/Hct of 11.5/35.2. - Electrolytes, renal function, blood sugar, and liver function were normal. - LDL cholesterol was 97. - Labs (November 2024): TSH was in the normal range and vitamin D was low. Plan Patient was informed and verbally consented to the use of an ambient scribe for clinic note documentation during this visit. 1. Rectal Bleeding The patient's report of intermittent rectal bleeding, combined with a history of mild anemia, is a concern. Although a digital rectal exam today was negative for gross blood, a referral to gastroenterology for evaluation and likely colonoscopy is warranted to rule out more serious pathology, such as colon cancer. 2. Hypothyroidism The patient reports non-adherence to her levothyroxine. Given her recent weight gain and non-adherence, fasting blood work, including a TSH level, will be ordered to assess her current thyroid status and determine if medication is necessary. 3. Anemia A CBC will be checked as part of the ordered fasting labs to re-evaluate her mild anemia, especially in the context of her reported rectal bleeding. 4. Intermittent Back Tightness Due to the persistent, long-standing nature of her intermittent right-sided back tightness, a chest x-ray will be ordered to rule out any underlying pathology. Discussion Notes I discussed with the patient that her report of rectal bleeding combined with her history of anemia is a significant concern. I explained that we cannot presume the cause is benign and that an evaluation is necessary to rule out serious conditions like colon cancer, which is occurring more frequently in younger individuals. I informed her that although my in-office rectal exam was negative for blood today, we will proceed with a referral to a applications project manager for a colonoscopy. We also reviewed her non-adherence to thyroid medication and the plan to recheck her labs to see if the medication is still needed. I explained that we would order a chest x-ray for her long-standing back tightness to be thorough. We discussed the importance of starting mammogram screenings due to her age and family history. I set a follow-up appointment in three months and advised her on how to contact me via the patient portal. Patient Instructions - Obtain fasting blood work to check your blood count and thyroid levels. - Get a chest x-ray, which can be done at any time. - Schedule a mammogram for breast cancer screening. - You will receive a call from the Gastroenterology department to schedule a consultation. - Continue taking Vitamin D 1,000 to 2,000 units once a day. - Continue with your diet and exercise plan. - Follow up in the office in three months. Orders: Orders Comprehensive Met. Panel Today E03.9 - Hypothyroidism, unspecified Ferritin Today E03.9 - Hypothyroidism, unspecified Reticulocyte Count Today E03.9 - Hypothyroidism, unspecified Vitamin B12 and Folate Today E03.9 - Hypothyroidism, unspecified Vitamin D 25-OH Total Today E03.9 - Hypothyroidism, unspecified IRON PROFILE Today E03.9 - Hypothyroidism, unspecified UA CC w/rflx Micro + Cult Today E03.9 - Hypothyroidism, unspecified, R30.0 - Dysuria XR chest 2V Today M54.9 - Dorsalgia, unspecified Complete Blood Count Auto Diff Today E03.9 - Hypothyroidism, unspecified Free T4 (Free Thyroxine) Today E03.9 - Hypothyroidism, unspecified Lipid Panel Today E03.9 - Hypothyroidism, unspecified, E78.00 - Pure hypercholesterolemia, unspecified Thyroid Stimulating Hormone Today E03.9 - Hypothyroidism, unspecified MM tomosynthesis screening BI Today Z12.31 - Encounter for screening mammogram for malignant neoplasm of breast Referrals Gastroenterology Referral K62.5 - Hemorrhage of anus and rectum
[2025-06-27 16:35] VITALS: O2SAT 96
== END 2025-06-27 17:00 | disposition home or self-care (01) ==
LOC: HO.HMCH 15:49
PROVIDERS: PCP Internal Medicine; Visit Provider Internal Medicine
DX: Z00.00 Encounter for general adult medical examination without abnormal findings (principal); E66.9 Obesity, unspecified; E55.9 Vitamin D deficiency, unspecified; Z68.38 Body mass index [BMI] 38.0-38.9, adult; D64.9 Anemia, unspecified; Z12.31 Encounter for screening mammogram for malignant neoplasm of breast; E03.9 Hypothyroidism, unspecified; K62.5 Hemorrhage of anus and rectum; M54.9 Dorsalgia, unspecified

== ENCOUNTER 2025-07-03 16:42 | Outpatient (REF) | payer OTHER, MEDICAID, SELFPAY ==
[2025-07-03 16:54] LABS: MANUAL DIFF FLAG NO
[2025-07-03 16:59] LABS: Hematocrit 34.7 % (37.0-47.0); Hemoglobin 10.8 g/dl (12.0-16.0); Imm Gran Abs Auto 0.03 X10*3/uL (0.00-0.03); Imm Gran Pct Auto 0.3 % (0.0-0.4); Lymphocytes Absolute Auto 2.1 X10*3/uL (1.2-4.9); Mean Corpuscular HGB Conc 31.1 g/dl (31.0-35.0); Mean Corpuscular Hemoglobin 25.2 pg (27.0-33.0); Mean Corpuscular Volume 80.9 fL (80.0-98.0); NRBC Abs Auto 0.000 X10*3/uL (0.0-0.012); NRBC Pct Auto 0.0 /100WBC (0.0-0.2); Platelet Count 313 X10*3/uL (160-400); Red Blood Count 4.29 X10*6/uL (4.20-5.50); Reticulocytes Absolute 0.043 X10*6/uL (0.026-0.095); White Blood Count 9.0 X10*3/uL (4.8-10.8)
[2025-07-03 17:09] LABS: Appearance Urine Cloudy; Glucose Urine UA Negative (Negative); PH 5.0 (5.0-9.0); Specific Gravity - Urine >= 1.030 (1.005-1.025); UMIC TRIGGER UACC YES
[2025-07-03 17:21] LABS: UACC Culture Trigger YES
[2025-07-03 17:22] LABS: Alanine Aminotransferase 23 U/L (0-31); Albumin Level 4.6 g/dL (3.5-5.0); Alkaline Phosphatase 57 U/L (39-117); Anion Gap 14 (12-20); Aspartate Amino Transferase 27 U/L (5-31); Blood Urea Nitrogen 16 mg/dL (9-16); Calcium 9.0 mg/dL (8.4-10.2); Carbon Dioxide 23 mmol/L (22-29); Chloride 107 mmol/L (96-108); Cholesterol 163 mg/dL (<200); Estimated Glomerular Filt Rate > 60; HDL Cholesterol 52 mg/dL (>40); Iron 67 mcg/dL (30-160); Percent Iron Saturation 19 % (15-50); Potassium 3.6 mmol/L (3.3-5.1); Sodium 140 mmol/L (135-145); Total Iron Binding Capacity 356 mcg/dL (228-428); Total Protein 7.6 g/dL (6.5-8.0); Triglycerides 81 mg/dL (<150); Unsaturated Iron Binding 289 ug/dL
[2025-07-03 17:39] LABS: Ferritin 7 ng/mL (10-250); Free T4 (Free Thyroxine) 0.84 ng/dL (0.71-1.85); Thyroid Stimulating Hormone 9.33 uIU/mL (0.32-4.0)
[2025-07-03 18:11] LABS: Folate 10.2 ng/mL (> or = 4.0); Vitamin B12 537 pg/mL (200-900)
--- OUTSIDE RECORDS SUMMARY | 2025-07-03 21:00 | XMS_ITS | Clinical Summary ---
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 Name Role Phone Unavailable Primary Care Provider [...] 1985 HIV Screening 1985 SDOH Screening 1985 Disability Screening 1985 Alcohol/Substance Use Screening 1997 Tobacco Screening 1997 Family Planning (PISQ) 2000 HPV Vaccines (1 - 3-dose series) 2000 Hepatitis C Screening 2003 Pap Smear 2006 Cervical Cancer Screening 2015 HPV/Cotest 2015 COVID-19 Vaccine ( season) 2025 Influenza Vaccine (#1) 2025 07/20/2020, 2016 Mammogram 2025 DTaP/Tdap/Td Vaccines (7 - Td or Tdap) 09/23/2026 09/23/2016, 03/09/2000, 02/19/1992, Additional history exists Zoster Vaccines (1 of 2) 2035 RSV Patients and Patients Aged 60 years or older (1 - 1-dose 75+ series) 2060 HIB Vaccines Completed 03/30/1987 IPV Vaccines Completed 02/19/1992, 08/1986, 1985, Additional history exists Hepatitis B Vaccines Completed 09/29/2017, 04/20/2017, 03/23/2017, Additional history exists Hepatitis A Vaccines Aged Out No long er eligible based on patient's age to complete this topic Meningococcal B Vaccine Aged Out No l onger eligible based on patient's age to complete this topic Meningococcal Vaccine Aged Out No sarah dayday eligible based on patient's age to complete this topic Pneumococcal Vaccine: Pediatrics (0 to 5 Years) and At-Risk Patients (6 to 49) Years Aged Out No longer eligible based on patient's age to complete this topic RSV under 20 months Aged Out No longe r eligible based on patient's age to complete this topic Rotavirus Vaccines Aged Out No longer eligible based on patient's age to complete this topic Insurance [facility] * Guarantor: Honey Mazariegos Account Type Relation to Patient Date of Phone Billing Address Personal/Family Self [address] [place] [id number] * Guarantor: Honey Mazariegos Account Type Relation to Patient Date of Phone Billing Address Personal/Family Self [address] [place] [address], [place] [address]
== END 2025-07-03 16:43 | disposition home or self-care (01) ==
LOC: HO.LAB 16:42
PROVIDERS: PCP Internal Medicine; Visit Provider Internal Medicine
DX: Z13.0 Encounter for screening for diseases of the blood and blood-forming organs and certain disorders involving the immune mechanism (principal); E78.00 Pure hypercholesterolemia, unspecified; E03.9 Hypothyroidism, unspecified; Z13.21 Encounter for screening for nutritional disorder
CPT/HCPCS: 36415; 80053; 80061; 81001; 82306; 82607; 82728; 82746; 83540; 84439; 84443; 85025; 85045; 87086